=== PATIENT | female | born 1935 | race Caucasian/White ===

== ENCOUNTER 2018-05-14 16:41 | Inpatient (IN) | payer MEDICARE, BC ==
[~2018-05-14] VITALS: Ht 157.5 cm; Wt 75.0 kg
[2018-05-14] MEDS ORDERED: ipratropium/albuterol 3ml nebule ONE (16:53)
[2018-05-14 16:55] LABS: ABG BASE EXCESS 3.4 mmol/L (-2.0-3.0); ABG HCO3 27.6 mmol/L (22.0-26.0); ABG OXYGEN SATURATION 95.6 % (95-98); ABG PCO2 (T) 40.4 mmHg (32.0-45.0); ABG PH (T) 7.452 (7.350-7.450); ALLEN'S TEST Positive; FCOHb 0.6 % (0.5-1.5); TOTAL HEMOGLOBIN 11.3 G/dl (12.0-16.0)
[2018-05-14] MEDS ORDERED: ipratropium/albuterol 3ml nebule NEB ONE (16:55)
[2018-05-14 17:07] LABS: BASOPHILS # (AUTO) 0.1 X10'3 (0-0.2); BASOPHILS % (AUTO) 0.7 % (0-1); EOSINOPHILS # (AUTO) 0.3 X10'3 (0-0.9); EOSINOPHILS % (AUTO) 3.8 % (0-6); HEMATOCRIT 32.7 % (35.0-45.0); HEMOGLOBIN 10.4 g/dl (12.0-16.0); LYMPHOCYTES # (AUTO) 1.1 X10'3 (1.1-4.8); LYMPHOCYTES % (AUTO) 14.5 % (21-51); MEAN CORPUSCULAR HEMOGLOBIN 27.9 PG (27.0-31.0); MEAN CORPUSCULAR HGB CONC 31.7 % (33.0-36.5); MEAN CORPUSCULAR VOLUME 88.1 FL (78-98); MEAN PLATELET VOLUME 7.9 FL (7.4-10.4); MONOCYTES # (AUTO) 0.6 X10'3 (0-0.9); MONOCYTES % (AUTO) 8.4 % (2-12); NEUTROPHILS # (AUTO) 5.4 X10'3 (1.8-7.7); NEUTROPHILS % (AUTO) 72.6 % (42-75); PLATELET COUNT 272 X10'3 (140-440); RED BLOOD COUNT 3.71 X10'6 (4.20-5.60); RED CELL DISTRIBUTION WIDTH 16.9 % (11.5-14.5); WHITE BLOOD COUNT 7.5 X10'3 (4.5-11.0)
[2018-05-14] MEDS ORDERED: HYDROcodone/acetaminophen 5mg/325mg tablet PO PRN (17:15)
[2018-05-14] MEDS ORDERED: morphine 4 MG/ML inj SYRINge IV PRN ×2 (17:15)
[2018-05-14] MEDS ORDERED: mag hydrox/Alum hydrox/simeth 30ml oral suspension PO PRN (17:15)
[2018-05-14] MEDS ORDERED: magnesium hydroxide 30ml (MOM) UD suspension PO PRN (17:15)
[2018-05-14] MEDS ORDERED: ondansetron/PF 4mg/2ml inj IV PRN (17:15)
[2018-05-14] MEDS ORDERED: acetaminophen 325mg tablet PO PRN (17:15)
[2018-05-14 17:18] LABS: ALANINE AMINOTRANSFERASE 16 U/L (12-78); ALBUMIN 3.5 G/DL (3.4-5.0); ALBUMIN/GLOBULIN RATIO 0.8 (1.1-1.5); ALKALINE PHOSPHATASE 105 IU/L (46-116); ANION GAP 7 (8-16); ASPARTATE AMINO TRANSFERASE 23 U/L (10-37); BILIRUBIN,TOTAL 0.7 MG/DL (0.1-1.0); BLOOD UREA NITROGEN 41 MG/DL (7-18); BUN/CREATININE RATIO 25.6 (6.6-38.0); CALCIUM 9.5 MG/DL (8.5-10.1); CHLORIDE 103 MMOL/L (99-107); GLUCOSE 112 MG/DL (70-104); SODIUM 141 MMOL/L (135-145); TOTAL CARBON DIOXIDE 31.2 MMOL/L (24-32); TOTAL PROTEIN 7.7 G/DL (6.4-8.2); eGFR 31 ML/MIN
[2018-05-14 17:20] LABS: INR 2.1 INR; PROTHROMBIN TIME 20.6 SECONDS (9.0-12.0)
--- NOTE | 2018-05-14 19:16 | NUR ---
Rec'd report from MARIA DEL CARMEN Nicholson in the ER.
--- NOTE | 2018-05-14 19:21 | NUR ---
report called, pt undergoing ultrasound at this time, will be transported to floor immediately afterwards
[2018-05-14] MEDS: enoxaparin 40mg/0.4ml syringe SUBCUT SCH (20:00)
[2018-05-14] MEDS: enoxaparin 30mg/0.3ml syringe SUBCUT SCH (20:00)
--- NOTE | 2018-05-14 20:06 | NUR ---
Patient arrived from ER on a gurney and was able to ambulate to her bed with standby assist. She is A&O x4, CALERO and is appropriate. I will continue to monitor.
[2018-05-14 20:10] VITALS: BP 146/57
[2018-05-14] MEDS ORDERED: FURO-149 PO (20:47)
[2018-05-14] MEDS ORDERED: METO1TAB25 PO (20:47)
[2018-05-14] MEDS ORDERED: WARF5TAB PO (20:47)
[2018-05-14] MEDS ORDERED: LEVO25TA2 PO (20:47)
[2018-05-14] MEDS ORDERED: SPIR25TA5 PO (20:47)
[2018-05-14] MEDS ORDERED: DIGO125T PO (20:47)
[2018-05-14] MEDS ORDERED: INSU100V9 SQ (20:47)
[2018-05-14] MEDS ORDERED: ALLO100T PO (20:47)
[2018-05-14] MEDS ORDERED: INSU100C4 SQ (20:47)
[2018-05-14] MEDS: furosemide 10 MG/1 ML 10ml inj IV SCH (21:01)
[2018-05-14] MEDS: metoprolol tartrate 50mg tablet PO SCH (21:02)
[2018-05-14] MEDS ORDERED: dextrose ORAL solution 15 GM/59 ML bottle PO PRN ×2 (21:10)
[2018-05-14] MEDS ORDERED: insulin Lispro (HumaLOG) vial - multi-dose SQ SCH (21:10)
[2018-05-14] MEDS ORDERED: MESSAGE TO PHARMACY PO ONE (21:10)
[2018-05-14] MEDS ORDERED: glucagon, human recombinant 1mg kit SUBCUT PRN (21:10)
[2018-05-14] MEDS ORDERED: dextrose 50%-water 50ml dispensing syringe IV PRN ×2 (21:10)
[2018-05-14 22:00] VITALS: BP 121/66
[2018-05-14 22:23] LABS: HEMOGLOBIN A1C 7.5 % (4.5-6.2)
[2018-05-15] VITALS (7 sets, daily range): BP systolic 93–129; BP diastolic 38–87
[2018-05-15] MEDS ORDERED: albuterol 2.5 MG/3 ML nebule NEB PRN (03:45)
[2018-05-15 05:55] LABS: BASOPHILS % (AUTO) 0.4 % (0-1); EOSINOPHILS # (AUTO) 0.3 X10'3 (0-0.9); EOSINOPHILS % (AUTO) 4.6 % (0-6); HEMATOCRIT 29.5 % (35.0-45.0); HEMOGLOBIN 9.6 g/dl (12.0-16.0); LYMPHOCYTES # (AUTO) 0.9 X10'3 (1.1-4.8); LYMPHOCYTES % (AUTO) 12.9 % (21-51); MEAN CORPUSCULAR HEMOGLOBIN 28.3 PG (27.0-31.0); MEAN CORPUSCULAR HGB CONC 32.5 % (33.0-36.5); MEAN CORPUSCULAR VOLUME 87.3 FL (78-98); MEAN PLATELET VOLUME 8.1 FL (7.4-10.4); MONOCYTES # (AUTO) 0.8 X10'3 (0-0.9); MONOCYTES % (AUTO) 10.7 % (2-12); NEUTROPHILS # (AUTO) 5.3 X10'3 (1.8-7.7); NEUTROPHILS % (AUTO) 71.4 % (42-75); PLATELET COUNT 264 X10'3 (140-440); RED BLOOD COUNT 3.38 X10'6 (4.20-5.60); RED CELL DISTRIBUTION WIDTH 17.2 % (11.5-14.5); WHITE BLOOD COUNT 7.3 X10'3 (4.5-11.0)
[2018-05-15 06:01] LABS: ALBUMIN 3.1 G/DL (3.4-5.0); ANION GAP 8 (8-16); BLOOD UREA NITROGEN 43 MG/DL (7-18); BUN/CREATININE RATIO 24.6 (6.6-38.0); CALCIUM 9.2 MG/DL (8.5-10.1); CHLORIDE 103 MMOL/L (99-107); CHOL/HDL RATIO 6.3 (0.00-4.99); CHOLESTEROL 183 MG/DL (0-200); CREATININE 1.75 MG/DL (0.40-0.90); GLUCOSE 151 MG/DL (70-104); HDL CHOLESTEROL 29 MG/DL (35-60); LDL CHOLESTEROL 134 MG/DL (50-100); POTASSIUM 3.9 MMOL/L (3.5-5.1); SODIUM 142 MMOL/L (135-145); TOTAL CARBON DIOXIDE 31.5 MMOL/L (24-32); TRIGLYCERIDES 135 MG/DL (20-135); eGFR 28 ML/MIN
--- NOTE | 2018-05-15 06:09 | NUR ---
Problems reprioritized. Patient report given, questions answered & plan of care reviewed with MARIA DEL CARMEN Laguna.
--- NOTE | 2018-05-15 06:16 | NUR ---
Patient in room PCU 3013. I have received report from MARIA DEL CARMEN HARP and had the opportunity to ask questions and assume patient care.
[2018-05-15] MEDS: nitroGLYCERIN 0.4mg/hour patch TD SCH (08:00)
[2018-05-15] MEDS: enoxaparin 30mg/0.3ml syringe SUBCUT SCH (08:00)
[2018-05-15] MEDS: enoxaparin 40mg/0.4ml syringe SUBCUT SCH (08:00)
[2018-05-15] MEDS: metoprolol tartrate 50mg tablet PO SCH ×2 (08:51→19:55)
[2018-05-15] MEDS: aspirin 81mg tablet.DR PO SCH (08:51)
[2018-05-15] MEDS: lisinopril 5mg tablet PO SCH (08:51)
[2018-05-15] MEDS: furosemide 10 MG/1 ML 10ml inj IV SCH ×2 (08:53→19:53)
--- NOTE | 2018-05-15 14:06 | NUR ---
Dr López paged regarding med rec needing addressed. Patient not receiving home dose of Coumadin.
[2018-05-15] MEDS: levoFLOXACIN-Levaquin 250mg/D5 50 ML IV SCH (14:16)
--- NOTE | 2018-05-15 14:24 | NUR ---
agustin catheter dc'd per Dr. López. 10ml deflated from balloon. no complications noted. pt advised to let nursing staff know when she needs to void.
--- NOTE | 2018-05-15 14:38 | NUR ---
Malnutrition/DM consults: A1C 7.5. Pt admit w/ acute pulmonary edema; seen by RD for written/verbal DM ed w/ RD contact information provided. Pt PO 75% lunch during RD visit, no severe weakness, and BLE +2 pitting edema only malnutrition indicator. Appears well-nourished. At this time does not qualify for malnutrition. Addendum: 05/15/18 at [address] Amended: Links added.
--- NOTE | 2018-05-15 18:20 | NUR ---
Problems reprioritized. Patient report given, questions answered & plan of care reviewed with priti chapa sbar and bedside.
--- NOTE | 2018-05-15 18:27 | NUR ---
Patient in room PCU 3013. I have received report from MARYCRUZ JOYCE and had the opportunity to ask questions and assume patient care. PATIENT AWAKE IN NO DISTRESS; PATIENT FINISHED EATING DINNER AND EXPLAINS THERE IS NO NEED TO VOID AT THIS TIME. WILL CONT TO MONITOR
[2018-05-15] MEDS: guaiFENesin ER 600mg tablet PO SCH (19:54)
[2018-05-15] MEDS ORDERED: HYDROchlorothiazide 25mg tablet PO SCH (20:00)
[2018-05-15] MEDS ORDERED: insulin glargine (Lantus) pen - multi-dose SQ SCH (21:00)
[2018-05-15] MEDS ORDERED: non-formulary drug (Insulin Glargine,Hum.rec.anlog (Lantus) 20 UNIT) SQ SCH (21:00)
[2018-05-15] MEDS ORDERED: warfarin 5mg tablet PO SCH (21:00)
--- NOTE | 2018-05-15 21:00 | NUR ---
AFTER GIVING LASIX AND LOPRESSOR NURSE REASSESSED BP 1 HOUR LATER AND PATIENT'S SBP 89; WITHHELD HTCZ AT THIS TIME
--- NOTE | 2018-05-15 22:19 | NUR ---
PAGER ID: [phone] MESSAGE: U [id number]; ALANNAH MIKE NEEDS SOMETHING FOR A PERSISTENT COUGH CAN WE GET A PRN? THANKS ROMAIN Addendum: 05/15/18 at 2225 by Asmita Kwan RN ORDERED ROBITUSSIN PRN COUGH PATIENT HAS ALSO NOT VOIDED FOR 8 HOURS SINCE MARTINEZ REMOVAL; BLADDER SCANNER SHOWING 6ML ONLY AFTER PATIENT WAS GIVEN LASIX. PATIENT REPORTS HAVING 4-5 VOIDS A DAY AT HOME. DR FAIRCHILD ORDERED STRAIGHT CATH
[2018-05-15] MEDS ORDERED: guaiFENesin/DM 10ml UD oral syrup PO PRN (22:25)
[2018-05-16 00:51] VITALS: BP 113/47
[2018-05-16 02:50] VITALS: BP 107/54
[2018-05-16 05:23] LABS: BASOPHILS % (AUTO) 0.4 % (0-1); EOSINOPHILS # (AUTO) 0.3 X10'3 (0-0.9); EOSINOPHILS % (AUTO) 4.4 % (0-6); HEMATOCRIT 30.3 % (35.0-45.0); HEMOGLOBIN 9.7 g/dl (12.0-16.0); LYMPHOCYTES # (AUTO) 1.2 X10'3 (1.1-4.8); LYMPHOCYTES % (AUTO) 15.9 % (21-51); MEAN CORPUSCULAR HEMOGLOBIN 28.2 PG (27.0-31.0); MEAN CORPUSCULAR VOLUME 88.2 FL (78-98); MEAN PLATELET VOLUME 7.9 FL (7.4-10.4); MONOCYTES # (AUTO) 0.8 X10'3 (0-0.9); MONOCYTES % (AUTO) 10.7 % (2-12); NEUTROPHILS # (AUTO) 5.2 X10'3 (1.8-7.7); NEUTROPHILS % (AUTO) 68.6 % (42-75); PLATELET COUNT 258 X10'3 (140-440); RED BLOOD COUNT 3.44 X10'6 (4.20-5.60); RED CELL DISTRIBUTION WIDTH 16.8 % (11.5-14.5); WHITE BLOOD COUNT 7.5 X10'3 (4.5-11.0)
[2018-05-16 05:31] LABS: ALBUMIN 2.9 G/DL (3.4-5.0); ANION GAP 7 (8-16); BLOOD UREA NITROGEN 59 MG/DL (7-18); BUN/CREATININE RATIO 28.2 (6.6-38.0); CALCIUM 8.7 MG/DL (8.5-10.1); CHLORIDE 99 MMOL/L (99-107); CREATININE 2.09 MG/DL (0.40-0.90); GLUCOSE 108 MG/DL (70-104); POTASSIUM 4.2 MMOL/L (3.5-5.1); SODIUM 137 MMOL/L (135-145); eGFR 23 ML/MIN
[2018-05-16 05:36] LABS: PROTHROMBIN TIME 19.3 SECONDS (9.0-12.0)
[2018-05-16 06:00] VITALS: BP 88/53
--- NOTE | 2018-05-16 06:26 | NUR ---
Problems reprioritized. Patient report given, questions answered & plan of care reviewed with RUTH JOYCE. PATIENT IN NO DISTRESS. AWAKE, V/S BEING TAKEN
[2018-05-16 06:30] VITALS: BP 107/55
--- NOTE | 2018-05-16 06:30 | NUR ---
Patient in room PCU 3013. I have received report from Suze JOYCE and had the opportunity to ask questions and assume patient care. Pt on RA denies SOB, and without signs of distress. Will continue to monitor.
[2018-05-16] MEDS: levoFLOXACIN-Levaquin 250mg/D5 50 ML IV SCH (07:21)
[2018-05-16] MEDS: guaiFENesin ER 600mg tablet PO SCH (07:22)
[2018-05-16] MEDS: aspirin 81mg tablet.DR PO SCH (07:22)
[2018-05-16] MEDS ORDERED: enoxaparin 30mg/0.3ml syringe SUBCUT SCH (08:00)
[2018-05-16] MEDS ORDERED: allopurinol 100mg tablet PO SCH (08:00)
[2018-05-16] MEDS ORDERED: levoTHYROXINE 25mcg tablet PO SCH (08:00)
[2018-05-16] MEDS: nitroGLYCERIN 0.4mg/hour patch TD SCH (08:00)
[2018-05-16] MEDS: lisinopril 5mg tablet PO SCH (08:00)
[2018-05-16] MEDS ORDERED: digoxin 125mcg (0.125mg) tablet PO SCH (08:00)
[2018-05-16] MEDS ORDERED: benzonatate 100mg capsule PO PRN (09:20)
[2018-05-16 11:00] VITALS: BP 117/51
--- NOTE | 2018-05-16 11:53 | NUR ---
PAGER ID: [phone] MESSAGE: [phone] B Maylin Serrano Physical therapy evaluated and treated patient. Patient ambulated 40feet and oxygen satuation remained stable. Thank you, Yamini #[phone]
[2018-05-16] MEDS ORDERED: BENZ-16 PO (14:15)
[2018-05-16] MEDS ORDERED: METO50TA16 PO (14:15)
[2018-05-16] MEDS ORDERED: LISI-642 PO (14:15)
[2018-05-16] MEDS ORDERED: ROBDML PO (14:15)
--- NOTE | 2018-05-16 15:55 | NUR ---
IV discontinued with canula intact, tele monitor discontinued, educated pt on discharge instructions and reviewed medication schedule with patient. Pt is scheduled for a follow up with primary care provider, Dr. Leach for May 23, 2018 at 1620. New meds were delivered by [facility]. I educated patient on the importance of taking her blood pressure and heart rate before taking her Metoprolol, Lisinopril, Lasix, and Spironolactone. I also educated patient on signs and symptoms of hypotension and bradycardia. Diabetes survival skills given to patient. Patient left in private vehicle driven by her friend with all of her belongings.
[2018-05-16] MEDS ORDERED: metoprolol tartrate 50mg tablet PO SCH (20:00)
[2018-05-16] MEDS ORDERED: lactobacillus rhamnosus 10,000 MMU CELLS/CAPSULE PO SCH (20:00)
[2018-05-17] MEDS ORDERED: furosemide 10 MG/1 ML 10ml inj IV SCH (08:00)
[2018-05-17] MEDS ORDERED: levoFLOXACIN 250mg tablet PO SCH (11:00)
== END 2018-05-16 16:00 | disposition home or self-care (01) | DRG 291 ==
LOC: ER 16:42 → ED HOLD 17:11 → EDBEDREQ 18:46 → PCU 3S 20:00
PROVIDERS: ADMIT Internal Medicine; ATTEND Internal Medicine
DX: I13.0 Hypertensive heart and chronic kidney disease with heart failure and stage 1 through stage 4 chronic kidney disease, or unspecified chronic kidney disease (principal); J96.01 Acute respiratory failure with hypoxia; I50.43 Acute on chronic combined systolic (congestive) and diastolic (congestive) heart failure; R74.8 Abnormal levels of other serum enzymes; I48.0 Paroxysmal atrial fibrillation; N18.3 Chronic kidney disease, stage 3 (moderate); E11.22 Type 2 diabetes mellitus with diabetic chronic kidney disease; D64.9 Anemia, unspecified; G47.30 Sleep apnea, unspecified; Z90.710 Acquired absence of both cervix and uterus; Z95.3 Presence of xenogenic heart valve; Z79.899 Other long term (current) drug therapy; Z79.01 Long term (current) use of anticoagulants; Z88.0 Allergy status to penicillin; Z86.73 Personal history of transient ischemic attack (TIA), and cerebral infarction without residual deficits; Z82.49 Family history of ischemic heart disease and other diseases of the circulatory system; Z83.3 Family history of diabetes mellitus
CPT/HCPCS: 36415; 36600; 71045; 80048; 80053; 80061; 82803; 82948; 83036; 83880; 84484; 85018; 85025; 85610; 87070; 93005; 93306; 94640; 94667; 94760; 97110; 97116; 97162; 99291; G0378; J1650; J1815; J1940; J1956

== ENCOUNTER 2018-08-01 22:24 | Inpatient (IN) | payer MEDICARE, BC | END 2018-08-05 17:45 | disposition short-term general hospital (02) | LOC: ED HOLD 08-02 01:31 → ER 22:24 → PCU 3S 08-02 07:07 | DX: I27.22 Pulmonary hypertension due to left heart disease (principal); I50.33 Acute on chronic diastolic (congestive) heart failure; I13.0 Hypertensive heart and chronic kidney disease with heart failure and stage 1 through stage 4 chronic kidney disease, or unspecified chronic kidney disease; I48.0 Paroxysmal atrial fibrillation; I25.10 Atherosclerotic heart disease of native coronary artery without angina pectoris ==

== ENCOUNTER 2018-09-25 18:03 | Inpatient (IN) | payer MEDICARE, BC ==
[~2018-09-25] VITALS: Ht 157.5 cm; Wt 86.3 kg
[~2018-09-25 18:03] MED LIST: ALLO100T PO; BENZ-16 PO; DIGO125T PO; FURO-149 PO; INSU100C4 SQ; INSU100V9 SQ; LEVO25TA2 PO; LISI-642 PO; METO50TA16 PO; ROBDML PO; SPIR25TA5 PO; WARF5TAB PO
[2018-09-25] MEDS ORDERED: POTA10TA19 PO (18:33)
[2018-09-25] MEDS ORDERED: EPOE10004 SQ (18:33)
[2018-09-25] MEDS ORDERED: APIX2.5T PO (18:33)
[2018-09-25] MEDS ORDERED: DOCU-28 PO (18:33)
[2018-09-25] MEDS ORDERED: ERGO500014 PO (18:33)
[2018-09-25] MEDS ORDERED: FERR325T28 PO (18:33)
[2018-09-25] MEDS ORDERED: ASPI81TA52 PO (18:33)
[2018-09-25] MEDS ORDERED: MULT-933 PO (18:33)
[2018-09-25] MEDS ORDERED: METO50TA17 PEG (18:34)
[2018-09-25 19:01] LABS: HEMOGLOBIN 9.5 g/dl (12.0-16.0); MEAN CORPUSCULAR HEMOGLOBIN 29.1 PG (27.0-31.0); MEAN CORPUSCULAR HGB CONC 30.7 g/dL (33.0-36.5); RED BLOOD COUNT 3.27 X10'6 (4.20-5.60)
[2018-09-25 19:03] LABS: MEAN CORPUSCULAR VOLUME 94.7 FL (78-98); PLATELET COUNT 181 X10'3 (140-440); RED CELL DISTRIBUTION WIDTH 29.3 % (11.5-14.5); WHITE BLOOD COUNT 4.4 X10'3 (4.5-11.0)
[2018-09-25 19:14] LABS: ALANINE AMINOTRANSFERASE 19 U/L (12-78); ALBUMIN 3.3 G/DL (3.4-5.0); ALKALINE PHOSPHATASE 111 IU/L (46-116); ANION GAP 5 (8-16); ASPARTATE AMINO TRANSFERASE 23 U/L (10-37); BILIRUBIN,TOTAL 0.7 MG/DL (0.1-1.0); BLOOD UREA NITROGEN 84 MG/DL (7-18); BUN/CREATININE RATIO 41.4 (6.6-38.0); CALCIUM 9.5 MG/DL (8.5-10.1); CHLORIDE 108 MMOL/L (99-107); CREATININE 2.03 MG/DL (0.40-0.90); GLUCOSE 97 MG/DL (70-104); SODIUM 139 MMOL/L (135-145); TOTAL CARBON DIOXIDE 26.1 MMOL/L (24-32); TOTAL PROTEIN 6.6 G/DL (6.4-8.2); eGFR 23 ML/MIN
[2018-09-25 19:22] LABS: MAGNESIUM 2.7 MG/DL (1.5-2.4)
[2018-09-25 19:42] LABS: ANISOCYTOSIS 3+; PLATELET ESTIMATE NORMAL; TOTAL CELLS COUNTED 100
[2018-09-25 19:43] LABS: SCHISTOCYTES 1+
[2018-09-25] MEDS ORDERED: ondansetron/PF 4mg/2ml inj IV PRN (22:00)
[2018-09-25] MEDS ORDERED: mag hydrox/Alum hydrox/simeth 30ml oral suspension PO PRN (22:00)
[2018-09-25] MEDS ORDERED: magnesium hydroxide 30ml (MOM) UD suspension PO PRN (22:00)
[2018-09-25] MEDS ORDERED: acetaminophen 325mg tablet PO PRN (22:00)
[2018-09-25] MEDS ORDERED: EPOETIN ALFA 10000 UNIT SQ SCH (22:05)
[2018-09-25] MEDS ORDERED: dextrose 50%-water 50ml dispensing syringe IV PRN ×2 (22:10)
[2018-09-25] MEDS ORDERED: glucagon, human recombinant 1mg kit SUBCUT PRN (22:10)
[2018-09-25] MEDS ORDERED: MESSAGE TO PHARMACY PO ONE (22:10)
[2018-09-25] MEDS ORDERED: dextrose ORAL solution 15 GM/59 ML bottle PO PRN ×2 (22:10)
[2018-09-25] MEDS ORDERED: epoetin 20,000 units/ml inj SQ SCH (23:00)
--- NOTE | 2018-09-25 23:46 | NUR ---
DR EISENBERG UPDATED THAT WHEN I EXPLAINED DNR TO THE PT AND WAS GOING TO PLACE THE BAND ON HER WRIST, SHE STATED THAT SHE WOULD BE OK WITH ANY MEDICATIONS AND OXYGEN OR OXYGEN MASK AND THAT SHE DID NOT WANT ANYTHING INVASIVE. REPORTED NO TO: CHEST COMPRESSIONS, DEFIBRILLATION, AND INTUBTION. CODE STATUS CHANGED TO LIMITED.
--- NOTE | 2018-09-25 23:54 | NUR ---
Patient in room . I have received report from Madelaine JOYCE and had the opportunity to ask questions and assume patient care.
--- NOTE | 2018-09-25 23:56 | NUR ---
DR. EISENBERG JUST TALKED TO PT AND SHE REPORTS TO HIM THAT SHE WISHES TO BE FULL CODE. MD TO CHANGE THE ORDER TO FULL CODE. PT UP TO FLOOR NOW.
[2018-09-26] VITALS (7 sets, daily range): BP systolic 128–171; BP diastolic 48–76
--- NOTE | 2018-09-26 01:59 | NUR ---
pt stated that she had the procript injection at her dr office 09/25, no procript given during shift
--- NOTE | 2018-09-26 06:22 | NUR ---
Problems reprioritized. Patient report given, questions answered & plan of care reviewed with Myrtle JOYCE.
[2018-09-26 06:29] LABS: MEAN PLATELET VOLUME 8.1 FL (7.4-10.4)
[2018-09-26 06:31] LABS: HEMATOCRIT 30.3 % (35.0-45.0); HEMOGLOBIN 9.6 g/dl (12.0-16.0); MEAN CORPUSCULAR HEMOGLOBIN 29.5 PG (27.0-31.0); MEAN CORPUSCULAR HGB CONC 31.6 g/dL (33.0-36.5); MEAN CORPUSCULAR VOLUME 93.4 FL (78-98); PLATELET COUNT 171 X10'3 (140-440); RED BLOOD COUNT 3.25 X10'6 (4.20-5.60); RED CELL DISTRIBUTION WIDTH 29.2 % (11.5-14.5); WHITE BLOOD COUNT 4.6 X10'3 (4.5-11.0)
[2018-09-26 07:01] LABS: ALANINE AMINOTRANSFERASE 20 U/L (12-78); ALBUMIN 3.1 G/DL (3.4-5.0); ALKALINE PHOSPHATASE 101 IU/L (46-116); ANION GAP 8 (8-16); ASPARTATE AMINO TRANSFERASE 22 U/L (10-37); BILIRUBIN,TOTAL 0.6 MG/DL (0.1-1.0); BLOOD UREA NITROGEN 84 MG/DL (7-18); BUN/CREATININE RATIO 40.8 (6.6-38.0); CALCIUM 9.3 MG/DL (8.5-10.1); CHLORIDE 108 MMOL/L (99-107); CREATININE 2.06 MG/DL (0.40-0.90); GLUCOSE 118 MG/DL (70-104); SODIUM 141 MMOL/L (135-145); TOTAL CARBON DIOXIDE 25.1 MMOL/L (24-32); TOTAL PROTEIN 6.3 G/DL (6.4-8.2); eGFR 23 ML/MIN
--- NOTE | 2018-09-26 07:03 | NUR ---
Patient in room PCU 3027. I have received report from Hina JOYCE and had the opportunity to ask questions and assume patient care.
[2018-09-26 07:14] LABS: ANISOCYTOSIS 3+; PLATELET ESTIMATE NORMAL; TOTAL CELLS COUNTED 100
[2018-09-26 07:15] LABS: HYPOCHROMASIA 1+; POLYCHROMASIA FEW; SCHISTOCYTES FEW
[2018-09-26] MEDS ORDERED: POTASSIUM CHLORIDE PO SCH (08:00)
[2018-09-26] MEDS: furosemide 10 MG/1 ML 10ml inj IV SCH ×2 (08:07→20:33)
[2018-09-26] MEDS: aspirin 81mg tablet.DR PO SCH (08:09)
[2018-09-26] MEDS: docusate sod 100mg capsule PO SCH (08:09)
[2018-09-26] MEDS: ferrous sulfate 325mg tablet PO SCH (08:10)
[2018-09-26] MEDS: allopurinol 100mg tablet PO SCH (08:10)
[2018-09-26] MEDS: levoTHYROXINE 25mcg tablet PO SCH (08:10)
[2018-09-26] MEDS: apixaban 2.5mg tablet PO SCH ×2 (08:10→20:33)
[2018-09-26] MEDS: digoxin 125mcg (0.125mg) tablet PO SCH (08:10)
[2018-09-26] MEDS: metoprolol tartrate 50mg tablet PO SCH ×3 (08:10→20:34)
[2018-09-26] MEDS: potassium chloride 10mEq ER tablet PO SCH (08:10)
--- NOTE | 2018-09-26 18:47 | NUR ---
Patient in room PCU 3027. I have received report from Myrtle JOYCE and had the opportunity to ask questions and assume patient care.
[2018-09-26] MEDS: insulin glargine (Lantus) pen - multi-dose SQ SCH (21:00)
[2018-09-27 03:00] VITALS: BP 141/51
[2018-09-27 04:28] LABS: HEMOGLOBIN 9.8 g/dl (12.0-16.0); MEAN CORPUSCULAR HGB CONC 30.8 g/dL (33.0-36.5)
[2018-09-27 04:30] LABS: HEMATOCRIT 31.9 % (35.0-45.0); MEAN CORPUSCULAR HEMOGLOBIN 29.1 PG (27.0-31.0); MEAN CORPUSCULAR VOLUME 94.5 FL (78-98); MEAN PLATELET VOLUME 8.5 FL (7.4-10.4); PLATELET COUNT 166 X10'3 (140-440); RED BLOOD COUNT 3.37 X10'6 (4.20-5.60); RED CELL DISTRIBUTION WIDTH 28.7 % (11.5-14.5); WHITE BLOOD COUNT 4.9 X10'3 (4.5-11.0)
[2018-09-27 04:44] LABS: ALANINE AMINOTRANSFERASE 18 U/L (12-78); ALBUMIN 3.1 G/DL (3.4-5.0); ALBUMIN/GLOBULIN RATIO 0.9 (1.1-1.5); ALKALINE PHOSPHATASE 99 IU/L (46-116); ANION GAP 8 (8-16); ASPARTATE AMINO TRANSFERASE 23 U/L (10-37); BILIRUBIN,TOTAL 0.6 MG/DL (0.1-1.0); BLOOD UREA NITROGEN 87 MG/DL (7-18); BUN/CREATININE RATIO 41.4 (6.6-38.0); CALCIUM 9.2 MG/DL (8.5-10.1); CHLORIDE 107 MMOL/L (99-107); GLUCOSE 132 MG/DL (70-104); POTASSIUM 5.4 MMOL/L (3.5-5.1); SODIUM 140 MMOL/L (135-145); TOTAL CARBON DIOXIDE 25.4 MMOL/L (24-32); TOTAL PROTEIN 6.6 G/DL (6.4-8.2); eGFR 22 ML/MIN
[2018-09-27 06:00] VITALS: BP 148/44
[2018-09-27 06:00] LABS: ANISOCYTOSIS 3+; HYPOCHROMASIA 2+; PLATELET ESTIMATE NORMAL; TOTAL CELLS COUNTED 100
[2018-09-27 06:01] LABS: POIKILOCYTOSIS FEW; POLYCHROMASIA FEW
[2018-09-27 06:02] LABS: SPHEROCYTES FEW
--- NOTE | 2018-09-27 06:18 | NUR ---
Patient in room PCU 3027. I have received report from Hina JOYCE and had the opportunity to ask questions and assume patient care. Will continue to monitor patient.
--- NOTE | 2018-09-27 06:30 | NUR ---
Problems reprioritized. Patient report given, questions answered & plan of care reviewed with Zach JOYCE.
[2018-09-27] MEDS: docusate sod 100mg capsule PO SCH (07:41)
[2018-09-27] MEDS: ferrous sulfate 325mg tablet PO SCH (07:41)
[2018-09-27] MEDS: aspirin 81mg tablet.DR PO SCH (07:41)
[2018-09-27] MEDS: furosemide 10 MG/1 ML 10ml inj IV SCH ×2 (07:41→20:39)
[2018-09-27] MEDS: potassium chloride 10mEq ER tablet PO SCH (07:41)
[2018-09-27] MEDS: metoprolol tartrate 50mg tablet PO SCH ×3 (07:42→20:39)
[2018-09-27] MEDS: apixaban 2.5mg tablet PO SCH ×2 (07:43→20:39)
[2018-09-27] MEDS: levoTHYROXINE 25mcg tablet PO SCH (07:43)
[2018-09-27] MEDS: digoxin 125mcg (0.125mg) tablet PO SCH (07:44)
[2018-09-27] MEDS: allopurinol 100mg tablet PO SCH (07:55)
--- NOTE | 2018-09-27 11:47 | NUR ---
sent page to Dr. steward - Room 6781 Jason - Maylin Serrano. Had episode of bradycardia in the 30's with 5 second pause, mixed with 3-4 second pauses over one minute. HR returned to mid- 80's, BP 128/60. Thanks, Vilma x [phone]. Patient remained asymptomatic.
[2018-09-27 11:59] VITALS: BP 116/40
--- NOTE | 2018-09-27 14:23 | NUR ---
Patient aroused - Is very lethargic but can be aroused. Answers questions appropriately. States she is "very tired".
--- NOTE | 2018-09-27 15:58 | NUR ---
Message paged to provider - MESSAGE: Room 1903f, León Serrano. dig level is critical at 2.8. Patient is more lethargic and congested today and having difficulty clearing secretions. Consider RT treatments? Vilma x [phone]. Patient has friends in room - still sleepy, but trying to visit with them.
[2018-09-27 16:00] VITALS: BP 131/18
[2018-09-27 18:00] VITALS: BP 112/47
--- NOTE | 2018-09-27 18:11 | NUR ---
Problems reprioritized. Patient report given, questions answered & plan of care reviewed with Hina JOYCE. Patient stable at transfer of care.
--- NOTE | 2018-09-27 18:13 | NUR ---
[place] Medication Administration: For this medication-pass time frame, all medication were reviewed, dispensed, administered and documented per hospital policy by Vilma JOYCE. Orientee documentation: I have reviewed and agree with all interventions, assessments performed and documented by Vilma JOYCE.
--- NOTE | 2018-09-27 18:39 | NUR ---
Patient in room PCU 3027. I have received report from Aminata JOYCE and had the opportunity to ask questions and assume patient care.
[2018-09-27] MEDS: insulin glargine (Lantus) pen - multi-dose SQ SCH (21:00)
[2018-09-27 23:00] VITALS: BP 110/52
[2018-09-28] VITALS (13 sets, daily range): BP systolic 91–123; BP diastolic 40–58
--- NOTE | 2018-09-28 01:55 | NUR ---
pt is very SOB, O2 was 81%, increased from2.5 to 4L and O2 is at 91%. Notified Dr. No and received an order of ABG and bipap
[2018-09-28 02:36] LABS: ABG BASE EXCESS -3.9 mmol/L (-2.0-3.0); ABG HCO3 24.7 mmol/L (22.0-26.0); ABG OXYGEN SATURATION 87.8 % (95-98); ABG PCO2 (T) 63.1 mmHg (32.0-45.0); ABG PH (T) 7.209 (7.350-7.450); ABG PO2 (T) 61.2 mmHg (83-108); FCOHb 0.6 % (0.5-1.5); FLOW 5 L/min; FMetHb 0.1 % (0.3-1.12); FO2Hb 87.2 % (94-100); PATIENT TEMPERATURE 36.9; TOTAL HEMOGLOBIN 11.1 G/dl (12.0-16.0)
[2018-09-28 05:55] LABS: BASOPHILS # (AUTO) 0.1 X10'3 (0-0.2); BASOPHILS % (AUTO) 1.7 % (0-1); EOSINOPHILS # (AUTO) 0.1 X10'3 (0-0.9); EOSINOPHILS % (AUTO) 1.1 % (0-6); HEMATOCRIT 31.3 % (35.0-45.0); HEMOGLOBIN 9.5 g/dl (12.0-16.0); LYMPHOCYTES # (AUTO) 0.5 X10'3 (1.1-4.8); LYMPHOCYTES % (AUTO) 10.3 % (21-51); MEAN CORPUSCULAR HEMOGLOBIN 29.2 PG (27.0-31.0); MEAN CORPUSCULAR HGB CONC 30.3 g/dL (33.0-36.5); MEAN CORPUSCULAR VOLUME 96.2 FL (78-98); MEAN PLATELET VOLUME 8.8 FL (7.4-10.4); MONOCYTES # (AUTO) 0.8 X10'3 (0-0.9); MONOCYTES % (AUTO) 16.6 % (2-12); NEUTROPHILS # (AUTO) 3.4 X10'3 (1.8-7.7); NEUTROPHILS % (AUTO) 70.3 % (42-75); PLATELET COUNT 163 X10'3 (140-440); RED BLOOD COUNT 3.25 X10'6 (4.20-5.60); RED CELL DISTRIBUTION WIDTH 27.9 % (11.5-14.5); WHITE BLOOD COUNT 4.9 X10'3 (4.5-11.0)
[2018-09-28 06:15] LABS: ALANINE AMINOTRANSFERASE 19 U/L (12-78); ALBUMIN 3.1 G/DL (3.4-5.0); ALBUMIN/GLOBULIN RATIO 0.9 (1.1-1.5); ALKALINE PHOSPHATASE 91 IU/L (46-116); ANION GAP 7 (8-16); ASPARTATE AMINO TRANSFERASE 23 U/L (10-37); BILIRUBIN,TOTAL 0.6 MG/DL (0.1-1.0); BLOOD UREA NITROGEN 96 MG/DL (7-18); BUN/CREATININE RATIO 35.4 (6.6-38.0); CALCIUM 8.9 MG/DL (8.5-10.1); CHLORIDE 106 MMOL/L (99-107); CREATININE 2.71 MG/DL (0.40-0.90); GLUCOSE 144 MG/DL (70-104); POTASSIUM 5.7 MMOL/L (3.5-5.1); SODIUM 139 MMOL/L (135-145); TOTAL CARBON DIOXIDE 25.7 MMOL/L (24-32); TOTAL PROTEIN 6.4 G/DL (6.4-8.2); eGFR 17 ML/MIN
--- NOTE | 2018-09-28 06:34 | NUR ---
notified Dr. No digoxin 2.2, got an order to continue to hold digoxin
--- NOTE | 2018-09-28 06:39 | NUR ---
Problems reprioritized. Patient report given, questions answered & plan of care reviewed with Edith JOYCE.
--- NOTE | 2018-09-28 06:44 | NUR ---
Patient in room PCU 5707Z. I have received report from Mary JOYCE and had the opportunity to ask questions and assume patient care. Patient laying in bed, bipap in place. Patient denies complaints at this time. Bed is low and locked with call light in place, will continue to monitor at this time.
[2018-09-28 06:47] LABS: ANISOCYTOSIS 3+; HYPOCHROMASIA 1+; PLATELET ESTIMATE NORMAL; POLYCHROMASIA 1+
[2018-09-28 06:48] LABS: POIKILOCYTOSIS 1+
[2018-09-28] MEDS: potassium chloride 10mEq ER tablet PO SCH (07:09)
--- NOTE | 2018-09-28 07:09 | NUR ---
PAGER ID: [phone] MESSAGE: Edith JOYCE Ext [phone] Jayson K+5.7 will hold 10mEq scheduled K+, BUN/Cr increasing, continue to give IV Lasix? Thank you
[2018-09-28] MEDS: levoTHYROXINE 25mcg tablet PO SCH (09:00)
[2018-09-28] MEDS: apixaban 2.5mg tablet PO SCH ×2 (09:01→21:31)
[2018-09-28] MEDS: metoprolol tartrate 50mg tablet PO SCH ×3 (09:03→21:31)
[2018-09-28] MEDS: allopurinol 100mg tablet PO SCH (09:03)
[2018-09-28] MEDS: docusate sod 100mg capsule PO SCH (09:04)
[2018-09-28] MEDS: aspirin 81mg tablet.DR PO SCH (09:05)
[2018-09-28] MEDS: ferrous sulfate 325mg tablet PO SCH (09:05)
[2018-09-28] MEDS ORDERED: DOBUTamine-DoBUTrex 500mg/D5W 250 ML IV SCH (12:00)
--- NOTE | 2018-09-28 18:10 | NUR ---
Any charting and medication administrations completed by Eva JOYCE has been reviewed. Constructive criticism given as needed.
--- NOTE | 2018-09-28 18:36 | NUR ---
Problems reprioritized. Patient report given, questions answered & plan of care reviewed with Rima RN at the bedside.
--- NOTE | 2018-09-28 18:39 | NUR ---
Patient in room PCU 3027. I have received report from Edith JOYCE and had the opportunity to ask questions and assume patient care.
[2018-09-28] MEDS: furosemide 20 MG/2 ML vial IV SCH (21:30)
[2018-09-28] MEDS: insulin glargine (Lantus) pen - multi-dose SQ SCH (22:29)
[2018-09-29] VITALS (16 sets, daily range): BP systolic 100–130; BP diastolic 41–67
[2018-09-29 05:29] LABS: MEAN PLATELET VOLUME 8.7 FL (7.4-10.4)
[2018-09-29 05:31] LABS: HEMATOCRIT 29.5 % (35.0-45.0); HEMOGLOBIN 9.3 g/dl (12.0-16.0); MEAN CORPUSCULAR HEMOGLOBIN 29.4 PG (27.0-31.0); MEAN CORPUSCULAR HGB CONC 31.5 g/dL (33.0-36.5); MEAN CORPUSCULAR VOLUME 93.5 FL (78-98); PLATELET COUNT 141 X10'3 (140-440); RED BLOOD COUNT 3.15 X10'6 (4.20-5.60); WHITE BLOOD COUNT 5.8 X10'3 (4.5-11.0)
[2018-09-29 06:09] LABS: ALANINE AMINOTRANSFERASE 21 U/L (12-78); ALBUMIN 2.9 G/DL (3.4-5.0); ALBUMIN/GLOBULIN RATIO 0.9 (1.1-1.5); ALKALINE PHOSPHATASE 87 IU/L (46-116); ANION GAP 6 (8-16); ASPARTATE AMINO TRANSFERASE 24 U/L (10-37); BILIRUBIN,TOTAL 0.5 MG/DL (0.1-1.0); BLOOD UREA NITROGEN 111 MG/DL (7-18); BUN/CREATININE RATIO 31.9 (6.6-38.0); CALCIUM 8.7 MG/DL (8.5-10.1); CHLORIDE 105 MMOL/L (99-107); CREATININE 3.48 MG/DL (0.40-0.90); GLUCOSE 146 MG/DL (70-104); SODIUM 137 MMOL/L (135-145); TOTAL CARBON DIOXIDE 25.7 MMOL/L (24-32); eGFR 13 ML/MIN
[2018-09-29 06:18] LABS: POTASSIUM 6.2 MMOL/L (3.5-5.1)
--- NOTE | 2018-09-29 06:57 | NUR ---
Patient in room PCU 3027. I have received report from Rima JOYCE and had the opportunity to ask questions and assume patient care.
[2018-09-29] MEDS ORDERED: sodium polystyrene sulfonate 15gm/60ml oral suspension PO ONE (07:05)
[2018-09-29 07:18] LABS: ANISOCYTOSIS 3+; PLATELET ESTIMATE NORMAL; TOTAL CELLS COUNTED 100
[2018-09-29 07:19] LABS: HYPOCHROMASIA 1+; LARGE PLATELETS FEW; POIKILOCYTOSIS FEW; POLYCHROMASIA FEW
--- NOTE | 2018-09-29 07:55 | NUR ---
Problems reprioritized. Patient report given, questions answered & plan of care reviewed with Edith JOYCE/Claudine JOYCE.
[2018-09-29] MEDS: potassium chloride 10mEq ER tablet PO SCH (08:00)
[2018-09-29] MEDS: metoprolol tartrate 50mg tablet PO SCH ×3 (08:22→20:46)
[2018-09-29] MEDS: furosemide 20 MG/2 ML vial IV SCH (08:23)
[2018-09-29] MEDS: allopurinol 100mg tablet PO SCH (08:24)
[2018-09-29] MEDS: ferrous sulfate 325mg tablet PO SCH (08:24)
[2018-09-29] MEDS: aspirin 81mg tablet.DR PO SCH (08:24)
[2018-09-29] MEDS: docusate sod 100mg capsule PO SCH (08:24)
[2018-09-29] MEDS: levoTHYROXINE 25mcg tablet PO SCH (08:24)
[2018-09-29] MEDS: apixaban 2.5mg tablet PO SCH ×2 (08:24→20:46)
[2018-09-29] MEDS: digoxin 125mcg (0.125mg) tablet PO SCH (08:26)
[2018-09-29] MEDS ORDERED: dextrose 50%-water 50ml dispensing syringe IV ONE (09:50)
[2018-09-29] MEDS ORDERED: calcium chloride 100 MG/1 ML inj IV ONE (09:50)
[2018-09-29] MEDS ORDERED: insulin regular, human 10 units/0.1 ml syringe IV ONE (09:50)
[2018-09-29] MEDS ORDERED: calcium chloride inj. 1,000 MG in normal saline 100ml IV soln 90 ML IV ONE (10:05)
--- NOTE | 2018-09-29 10:17 | NUR ---
Page to Respiratory: 5149G PT RAHUL has active order for state ABG. Thank you.
[2018-09-29 10:36] LABS: ABG BASE EXCESS -4.4 mmol/L (-2.0-3.0); ABG HCO3 22.9 mmol/L (22.0-26.0); ABG OXYGEN SATURATION 95.5 % (95-98); ABG PCO2 (T) 52.7 mmHg (32.0-45.0); ABG PH (T) 7.255 (7.350-7.450); ABG PO2 (T) 89.2 mmHg (83-108); ALLEN'S TEST Positive; FCOHb 0.5 % (0.5-1.5); FLOW 2 L/min; FMetHb 0.2 % (0.3-1.12); FO2Hb 94.8 % (94-100); TOTAL HEMOGLOBIN 10.3 G/dl (12.0-16.0)
[2018-09-29] MEDS: DOBUTamine-DoBUTrex 500mg/D5W 250 ML IV SCH ×2 (10:59→20:47)
--- NOTE | 2018-09-29 12:45 | NUR ---
Winter Catheter placed with no incident per MD order. No urine output at this time, will collect urinalysis as production occurs.
--- NOTE | 2018-09-29 15:42 | NUR ---
Page to NM: [id number] PT RAHUL active stat order that MD does not want rescheduled. Says may be emergent and needs to be done today.
--- NOTE | 2018-09-29 16:56 | NUR ---
Attempted to call [employer] [facility] med with no answer. Patient went from oliguric to anuric. Ms Josie HAWK aware of decreased urine output, concerned it could be emergent. Nuc. Med previously verbalized that patient could be seen at 0800 on 09/30/2018, new order input as STAT in order to address issue. Will continue to attempt to call [facility]. Catheter flushed as per request from Josie, no output detected at this time.
--- NOTE | 2018-09-29 18:36 | NUR ---
Problems reprioritized. Patient report given, questions answered & plan of care reviewed with Rima JOYCE. Patient stable at transfer of care.
--- NOTE | 2018-09-29 18:42 | NUR ---
Patient in room PCU 3027. I have received report from Edith JOYCE and had the opportunity to ask questions and assume patient care.
--- NOTE | 2018-09-29 21:00 | NUR ---
No urine output in agustin bag. Flushed X 2 f/no results. Bladder palpated, bladder scan completed, showing >900mls fluid in bladder. New agustin catheter inserted f/clear, yellow urine draining cont. w/approx 550mls out immediately. Spec sent to lab.Foam drsg applied to coccyx which is reddened, blanchable, pt turned to L side. Sml open area noted to L groin, barrier crm applied. Protocol ord. to recheck K level entered as Kayexalate PO was admin approx 7HRS before this entry. AM K level: 6.2
[2018-09-29 21:46] LABS: CLARITY,URINE CLEAR (Clear); COLOR,URINE YELLOW (Yellow); GLUCOSE, URINE NEGATIVE (Neg); KETONES,URINE NEGATIVE (Neg); LEUKOCYTE ESTERASE ,URINE NEGATIVE (Neg); NITRITES, URINE NEGATIVE (Neg); OCCULT BLOOD,URINE TRACE-INTACT (Neg); PH,URINE 5.5 (4.8-8.0); PROTEIN,URINE TRACE mg/dl (Neg); UROBILINOGEN,URINE 0.2 E.U/dL (0.2-1.0)
[2018-09-29 21:51] LABS: SODIUM,URINE RANDOM < 15 MEQ/L; TOTAL PROTEIN,URINE RANDOM 46.1 MG/DL
[2018-09-29 21:56] LABS: UA COLLECTION TYPE FOLEY CATH
[2018-09-29 21:57] LABS: AMORPHOUS URATES 1+; BACTERIA,URINE FEW /HPF (Neg); RBC,URINE 0-2 /HPF (0-2); SQUAMOUS EPITHELIAL CELL,UR FEW /LPF (FEW); WBC,URINE NONE SEEN /HPF (0-4)
[2018-09-29 22:07] LABS: ALBUMIN 2.8 G/DL (3.4-5.0); ANION GAP 6 (8-16); BLOOD UREA NITROGEN 115 MG/DL (7-18); BUN/CREATININE RATIO 34.3 (6.6-38.0); CALCIUM 8.9 MG/DL (8.5-10.1); CHLORIDE 106 MMOL/L (99-107); CREATININE 3.35 MG/DL (0.40-0.90); GLUCOSE 130 MG/DL (70-104); SODIUM 136 MMOL/L (135-145); TOTAL CARBON DIOXIDE 24.1 MMOL/L (24-32); eGFR 13 ML/MIN
[2018-09-29 22:21] LABS: OSMOLALITY UA 360 MOSM/K (50-1400)
[2018-09-29] MEDS: insulin glargine (Lantus) pen - multi-dose SQ SCH (23:33)
[2018-09-30] VITALS (23 sets, daily range): BP systolic 88–125; BP diastolic 30–69
[2018-09-30 05:20] LABS: WHITE BLOOD COUNT 4.7 X10'3 (4.5-11.0)
[2018-09-30 05:28] LABS: HEMATOCRIT 27.4 % (35.0-45.0); HEMOGLOBIN 8.9 g/dl (12.0-16.0); MEAN CORPUSCULAR HEMOGLOBIN 30.4 PG (27.0-31.0); MEAN CORPUSCULAR HGB CONC 32.6 g/dL (33.0-36.5); MEAN CORPUSCULAR VOLUME 93.1 FL (78-98); MEAN PLATELET VOLUME 8.8 FL (7.4-10.4); PLATELET COUNT 123 X10'3 (140-440); RED BLOOD COUNT 2.94 X10'6 (4.20-5.60); RED CELL DISTRIBUTION WIDTH 27.6 % (11.5-14.5)
[2018-09-30 05:30] LABS: ALBUMIN 2.7 G/DL (3.4-5.0); ANION GAP 7 (8-16); BILIRUBIN,TOTAL 0.5 MG/DL (0.1-1.0); BLOOD UREA NITROGEN 114 MG/DL (7-18); BUN/CREATININE RATIO 32.9 (6.6-38.0); CHLORIDE 105 MMOL/L (99-107); CREATININE 3.47 MG/DL (0.40-0.90); GLUCOSE 118 MG/DL (70-104); POTASSIUM 4.6 MMOL/L (3.5-5.1); SODIUM 137 MMOL/L (135-145); TOTAL CARBON DIOXIDE 25.2 MMOL/L (24-32); TOTAL PROTEIN 5.7 G/DL (6.4-8.2); eGFR 13 ML/MIN
[2018-09-30 05:31] LABS: ALANINE AMINOTRANSFERASE 20 U/L (12-78); ALBUMIN/GLOBULIN RATIO 0.9 (1.1-1.5); ALKALINE PHOSPHATASE 84 IU/L (46-116); ASPARTATE AMINO TRANSFERASE 22 U/L (10-37)
[2018-09-30 06:20] LABS: ANISOCYTOSIS 3+; HYPOCHROMASIA 1+; PLATELET ESTIMATE DECREASED; POIKILOCYTOSIS FEW; TOTAL CELLS COUNTED 100
--- NOTE | 2018-09-30 06:51 | NUR ---
Patient in room PCU 3027. I have received report from MARIA DEL CARMEN Abarca and had the opportunity to ask questions and assume patient care.
--- NOTE | 2018-09-30 07:13 | NUR ---
Problems reprioritized. Patient report given, questions answered & plan of care reviewed with Luz Elena JOYCE/Claudine JOYCE.
--- NOTE | 2018-09-30 07:40 | NUR ---
Patient in room PCU 3027. I have received report from Rima JOYCE and had the opportunity to ask questions and assume patient care.
--- NOTE | 2018-09-30 07:55 | NUR ---
IN TO SEE AND ASSESS PT. PT ALERT AND ORIENTED X4. PT HAVING LOW BP 88/57 88/41 101/30 PT ASYMPTOMATIC. PT ON DOBUTAMINE @5. DR. HIGHTOWER IN TO SEE PT WITH MYSELF AND IS AWARE OF PTS CONDITION AND BLOOD PRESSURES. DR. HIGHTOWER NOTIFIED PTS DIG LEVEL YESTERDAY WAS 2 AND DIG WAS GIVEN YESTERDAY. PER DR. HIGHTOWER D/C DIG. PER DR HIGHTOWER PT WANTS TO STAY A FULL CODE. NO OTHER MD ORDERS RECEIVED. WILL CONTINUE TO MONITOR PT CLOSELY. Addendum: 09/30/18 at 0819 by Luz Elena Camacho RN STAFF HERE TO TAKE PT OT RENAL U/S. PT TOO UNSTABLE TO TRANSPORT AT THIS TIME. AWARE AND AGREES
[2018-09-30] MEDS: metoprolol tartrate 50mg tablet PO SCH ×3 (08:00→21:51)
[2018-09-30] MEDS: aspirin 81mg tablet.DR PO SCH (09:21)
[2018-09-30] MEDS: docusate sod 100mg capsule PO SCH (09:21)
[2018-09-30] MEDS: apixaban 2.5mg tablet PO SCH ×2 (09:22→21:41)
[2018-09-30] MEDS: ferrous sulfate 325mg tablet PO SCH (09:22)
[2018-09-30] MEDS: allopurinol 100mg tablet PO SCH (09:22)
[2018-09-30] MEDS: levoTHYROXINE 25mcg tablet PO SCH (09:22)
--- NOTE | 2018-09-30 10:15 | NUR ---
VIKTORIYA Hall in to see pt. she wis comfortable with proceeding with renal scan
--- NOTE | 2018-09-30 10:31 | NUR ---
pt taken to renal scan by hussein with 2RN's and tech. pt in stable condition Addendum: 09/30/18 at 1032 by Luz Elena Camacho RN current bp 104/58 hr 78 o2 98% 3L nc while laying flat for test
--- NOTE | 2018-09-30 10:35 | NUR ---
current bp 120/48
--- NOTE | 2018-09-30 11:07 | NUR ---
pt tolerating scan well current bp 114/56 hr 75 o2 98% 3l nc
--- NOTE | 2018-09-30 13:26 | NUR ---
DM Consult: A1C 7.1 in July. Pt admit w/ acute on chronic renal failure and cardiorenal per MD note. Pt/family seen by RD for written/verbal DM ed. Pt declined verbal review but accepted written handout and RD contact information. Pt reports drinking ensures at home w/ 0-25% PO carb controlled/renal/heart healthy meals this admit in addition to severe weakness and no appetite. LBM 09/28. CEDRICK [employer] for ensure enlive TIDWM approval given no PO and needs meal replacement ONS. No physical signs of malnutrition but if PO remains low will qualify at that time. Will continue to monitor. Rec: 1. IF PO remains 0-25%; advance to regular diet per MD approval 2. ensure enlive TIDWM per MD approval 3. monitor for additional malnutrition criteria 4. wt per rx Addendum: 09/30/18 at [address] Amended: Links added.
[2018-09-30] MEDS: insulin Lispro (HumaLOG) vial - multi-dose SQ SCH (13:34)
--- NOTE | 2018-09-30 14:53 | NUR ---
Page to Dr López re: Room 3023W Maylin Serrano morning and 1300 Lopressor held due to persistent hypotension Claudine 2606 awaiting call back
[2018-09-30] MEDS: DOBUTamine-DoBUTrex 500mg/D5W 250 ML IV SCH (17:04)
--- NOTE | 2018-09-30 17:58 | NUR ---
Orientee documentation: I have reviewed and agree with all interventions, assessments performed and documented by MARIA DEL CARMEN Chow.
[2018-09-30] MEDS: lactose-reduced food (Ensure Enlive) - 237ml bottle PO SCH ×2 (18:00→19:00)
--- NOTE | 2018-09-30 18:25 | NUR ---
Patient in room PCU 3027. I have received report from Tonya JOYCE and had the opportunity to ask questions and assume patient care.
--- NOTE | 2018-09-30 18:46 | NUR ---
Problems reprioritized. Patient report given, questions answered & plan of care reviewed with MARIA DEL CARMEN Harrington.
[2018-09-30] MEDS: insulin glargine (Lantus) pen - multi-dose SQ SCH (21:55)
[2018-10-01] VITALS (22 sets, daily range): BP systolic 102–121; BP diastolic 35–96
--- NOTE | 2018-10-01 06:29 | NUR ---
Patient in room U 3027. I have received report from MARIA DEL CARMEN Yu and had the opportunity to ask questions and assume patient care. Patient is currently resting in bed, bed locked and low, call light in reach. No accute distress, no needs at this time. Addendum: 10/01/18 at 0634 by Eva Mayo RN Charted on wrong patient, Received report from MARIA DEL CARMEN Harrington
--- NOTE | 2018-10-01 06:34 | NUR ---
Received report from Juany JOYCE at the bedside. Patient awake in bed, denies complaints, appears to be in no distress. Bed is low and locked, call light within reach. Will continue to monitor at this time.
--- NOTE | 2018-10-01 06:51 | NUR ---
Problems reprioritized. Patient report given, questions answered & plan of care reviewed with Edith JOYCE.
--- NOTE | 2018-10-01 07:25 | NUR ---
PAGER ID: [phone] MESSAGE: MARIA DEL CARMEN Velasquez [phone], [id number], Yasmeen PRICE maxed at 250, insulin@ 2, BG 99, can we drop insulin rate? Addendum: 10/01/18 at 1806 by Eva Mayo RN Charted on wrong patient
[2018-10-01 08:31] LABS: ALBUMIN 2.8 G/DL (3.4-5.0); ANION GAP 8 (8-16); BLOOD UREA NITROGEN 109 MG/DL (7-18); BUN/CREATININE RATIO 31.4 (6.6-38.0); CALCIUM 8.8 MG/DL (8.5-10.1); CHLORIDE 106 MMOL/L (99-107); CREATININE 3.47 MG/DL (0.40-0.90); GLUCOSE 104 MG/DL (70-104); POTASSIUM 4.3 MMOL/L (3.5-5.1); SODIUM 140 MMOL/L (135-145); TOTAL CARBON DIOXIDE 26.4 MMOL/L (24-32); eGFR 13 ML/MIN
[2018-10-01] MEDS: levoTHYROXINE 25mcg tablet PO SCH (08:48)
[2018-10-01] MEDS: metoprolol tartrate 50mg tablet PO SCH ×3 (08:53→21:27)
[2018-10-01] MEDS: docusate sod 100mg capsule PO SCH (08:54)
[2018-10-01] MEDS: aspirin 81mg tablet.DR PO SCH (08:54)
[2018-10-01] MEDS: apixaban 2.5mg tablet PO SCH ×2 (08:54→19:44)
[2018-10-01] MEDS: ferrous sulfate 325mg tablet PO SCH (08:54)
[2018-10-01] MEDS: allopurinol 100mg tablet PO SCH (08:54)
[2018-10-01] MEDS: insulin Lispro (HumaLOG) vial - multi-dose SQ SCH ×3 (09:03→19:49)
[2018-10-01] MEDS: lactose-reduced food (Ensure Enlive) - 237ml bottle PO SCH ×2 (13:25→18:05)
--- NOTE | 2018-10-01 15:58 | NUR ---
Spoke with Dr Gonzáles about blood production in patients agustin catheter, not concerned at this time.
[2018-10-01] MEDS: DOBUTamine-DoBUTrex 500mg/D5W 250 ML IV SCH (16:16)
--- NOTE | 2018-10-01 16:39 | NUR ---
Spoke with Dr López who verbalized request to keep in existing PIVs in order to keep Dobutamine drip running. Dr López also okay'd insertion of extended PIV. PICC nurse paged.
--- NOTE | 2018-10-01 18:15 | NUR ---
Patient in room PCU 3027. I have received report from Edith JOYCE and had the opportunity to ask questions and assume patient care.
--- NOTE | 2018-10-01 18:21 | NUR ---
Problems reprioritized. Patient report given, questions answered & plan of care reviewed with Juany JOYCE at the bedside. Patient stable and denies complaints at transfer of care.
[2018-10-01] MEDS: insulin glargine (Lantus) pen - multi-dose SQ SCH (21:33)
[2018-10-02] VITALS (11 sets, daily range): BP systolic 101–126; BP diastolic 37–65
[2018-10-02] MEDS ORDERED: epoetin 20,000 units/ml inj SQ SCH (02:05)
[2018-10-02 05:24] LABS: BASOPHILS % (AUTO) 0.7 % (0-1); EOSINOPHILS # (AUTO) 0.1 X10'3 (0-0.9); EOSINOPHILS % (AUTO) 1.5 % (0-6); HEMATOCRIT 28.3 % (35.0-45.0); HEMOGLOBIN 8.8 g/dl (12.0-16.0); LYMPHOCYTES # (AUTO) 0.6 X10'3 (1.1-4.8); MEAN CORPUSCULAR HEMOGLOBIN 29.4 PG (27.0-31.0); MEAN CORPUSCULAR VOLUME 94.5 FL (78-98); MEAN PLATELET VOLUME 8.6 FL (7.4-10.4); MONOCYTES # (AUTO) 0.4 X10'3 (0-0.9); MONOCYTES % (AUTO) 8.5 % (2-12); NEUTROPHILS # (AUTO) 3.8 X10'3 (1.8-7.7); NEUTROPHILS % (AUTO) 77.3 % (42-75); PLATELET COUNT 109 X10'3 (140-440); RED CELL DISTRIBUTION WIDTH 27.7 % (11.5-14.5); WHITE BLOOD COUNT 4.9 X10'3 (4.5-11.0)
[2018-10-02 06:17] LABS: ALBUMIN 2.7 G/DL (3.4-5.0); ANION GAP 9 (8-16); BLOOD UREA NITROGEN 112 MG/DL (7-18); BUN/CREATININE RATIO 33.1 (6.6-38.0); CALCIUM 8.6 MG/DL (8.5-10.1); CHLORIDE 105 MMOL/L (99-107); CREATININE 3.38 MG/DL (0.40-0.90); GLUCOSE 84 MG/DL (70-104); POTASSIUM 4.9 MMOL/L (3.5-5.1); SODIUM 140 MMOL/L (135-145); TOTAL CARBON DIOXIDE 25.6 MMOL/L (24-32); eGFR 13 ML/MIN
[2018-10-02 06:57] LABS: ANISOCYTOSIS 3+; PLATELET ESTIMATE DECREASED
[2018-10-02 06:58] LABS: HYPOCHROMASIA 1+; MICROCYTOSIS 1+
--- NOTE | 2018-10-02 07:00 | NUR ---
Problems reprioritized. Patient report given, questions answered & plan of care reviewed with Ana JOYCE.
[2018-10-02] MEDS: apixaban 2.5mg tablet PO SCH ×2 (08:09→19:23)
[2018-10-02] MEDS: aspirin 81mg tablet.DR PO SCH (08:09)
[2018-10-02] MEDS: allopurinol 100mg tablet PO SCH (08:09)
[2018-10-02] MEDS: ferrous sulfate 325mg tablet PO SCH (08:09)
[2018-10-02] MEDS: levoTHYROXINE 25mcg tablet PO SCH (08:09)
[2018-10-02] MEDS: docusate sod 100mg capsule PO SCH (08:09)
[2018-10-02] MEDS: metoprolol tartrate 50mg tablet PO SCH ×3 (08:10→19:23)
[2018-10-02] MEDS: lactose-reduced food (Ensure Enlive) - 237ml bottle PO SCH ×3 (08:15→18:00)
--- NOTE | 2018-10-02 08:30 | NUR ---
Informed MD López pt agustin catheter has blood, okay to continue eliquis and continue to monitor
[2018-10-02] MEDS: guaiFENesin ER 600mg tablet PO SCH ×2 (10:52→19:23)
[2018-10-02] MEDS: insulin Lispro (HumaLOG) vial - multi-dose SQ SCH ×3 (10:54→19:22)
[2018-10-02] MEDS: epoetin 20,000 units/ml inj SQ SCH (13:51)
[2018-10-02] MEDS: DOBUTamine-DoBUTrex 500mg/D5W 250 ML IV SCH (14:44)
--- NOTE | 2018-10-02 18:14 | NUR ---
Problems reprioritized. Patient report given, questions answered & plan of care reviewed with Alma manjarrez RN, pt greeted at bedside. .
[2018-10-02] MEDS: insulin glargine (Lantus) pen - multi-dose SQ SCH (21:43)
[2018-10-03 02:00] VITALS: BP 96/44
[2018-10-03 05:07] LABS: BASOPHILS % (AUTO) 0.6 % (0-1); EOSINOPHILS # (AUTO) 0.1 X10'3 (0-0.9); EOSINOPHILS % (AUTO) 1.7 % (0-6); HEMATOCRIT 29.2 % (35.0-45.0); LYMPHOCYTES # (AUTO) 0.4 X10'3 (1.1-4.8); LYMPHOCYTES % (AUTO) 7.7 % (21-51); MEAN CORPUSCULAR HEMOGLOBIN 29.3 PG (27.0-31.0); MEAN CORPUSCULAR HGB CONC 30.8 g/dL (33.0-36.5); MEAN CORPUSCULAR VOLUME 95.1 FL (78-98); MEAN PLATELET VOLUME 8.6 FL (7.4-10.4); MONOCYTES # (AUTO) 0.6 X10'3 (0-0.9); MONOCYTES % (AUTO) 9.9 % (2-12); NEUTROPHILS # (AUTO) 4.6 X10'3 (1.8-7.7); NEUTROPHILS % (AUTO) 80.1 % (42-75); PLATELET COUNT 106 X10'3 (140-440); RED BLOOD COUNT 3.07 X10'6 (4.20-5.60); RED CELL DISTRIBUTION WIDTH 27.7 % (11.5-14.5); WHITE BLOOD COUNT 5.7 X10'3 (4.5-11.0)
[2018-10-03 05:34] LABS: ALBUMIN 2.7 G/DL (3.4-5.0); ANION GAP 7 (8-16); BLOOD UREA NITROGEN 116 MG/DL (7-18); BUN/CREATININE RATIO 34.7 (6.6-38.0); CALCIUM 8.6 MG/DL (8.5-10.1); CHLORIDE 104 MMOL/L (99-107); CREATININE 3.34 MG/DL (0.40-0.90); GLUCOSE 168 MG/DL (70-104); SODIUM 137 MMOL/L (135-145); TOTAL CARBON DIOXIDE 26.4 MMOL/L (24-32); eGFR 13 ML/MIN
[2018-10-03 06:59] VITALS: BP 114/43
[2018-10-03] MEDS: allopurinol 100mg tablet PO SCH (08:36)
[2018-10-03] MEDS: guaiFENesin ER 600mg tablet PO SCH ×2 (08:36→19:52)
[2018-10-03] MEDS: ferrous sulfate 325mg tablet PO SCH (08:36)
[2018-10-03] MEDS: docusate sod 100mg capsule PO SCH (08:36)
[2018-10-03] MEDS: apixaban 2.5mg tablet PO SCH ×2 (08:36→19:52)
[2018-10-03] MEDS: levoTHYROXINE 25mcg tablet PO SCH (08:36)
[2018-10-03] MEDS: aspirin 81mg tablet.DR PO SCH (08:36)
[2018-10-03] MEDS: metoprolol tartrate 50mg tablet PO SCH ×3 (08:37→19:52)
[2018-10-03] MEDS: insulin Lispro (HumaLOG) vial - multi-dose SQ SCH ×3 (08:44→19:51)
[2018-10-03] MEDS: lactose-reduced food (Ensure Enlive) - 237ml bottle PO SCH ×3 (08:53→18:33)
[2018-10-03 09:24] LABS: ANISOCYTOSIS 3+; HYPOCHROMASIA 1+; PLATELET ESTIMATE DECREASED; POLYCHROMASIA 1+
[2018-10-03 09:27] LABS: POIKILOCYTOSIS FEW
[2018-10-03 09:29] LABS: BURR CELLS FEW; SCHISTOCYTES FEW
[2018-10-03 11:00] VITALS: BP 100/63
--- NOTE | 2018-10-03 13:36 | NUR ---
PAGER ID: [phone] MESSAGE: [facility]. held metoprolol due to BP 92/36. carmine [phone]
[2018-10-03] MEDS: DOBUTamine-DoBUTrex 500mg/D5W 250 ML IV SCH (13:51)
[2018-10-03 15:00] VITALS: BP 112/47
--- NOTE | 2018-10-03 15:53 | NUR ---
reassessment: Pt PO fluctuating 25-50% avg meals up from 0-25% previous. Per RN documented as refusing ensure but only cause pt is full and is sipping on them between meals instead. Given this PO of ONS and meals decent PO total given age. LBM 10/02. Weakness has improved but given edema and low PO hx pt qualifies for non-severe malnutrition at this time; MD notified. Will continue to monitor. Rec: 1. advance to regular diet per MD approval given low PO hx 2. ensure enlive TIDWM 3. weekly wts Addendum: 10/03/18 at [address] Amended: Links added.
[2018-10-03 18:00] VITALS: BP 125/65
--- NOTE | 2018-10-03 18:18 | NUR ---
Problems reprioritized. Patient report given, questions answered & plan of care reviewed with . Alma whipple pt seen at bedside.
[2018-10-03] MEDS: insulin glargine (Lantus) pen - multi-dose SQ SCH (21:50)
[2018-10-03 22:00] VITALS: BP 90/45
[2018-10-04] VITALS (13 sets, daily range): BP systolic 74–120; BP diastolic 33–73
[2018-10-04 05:26] LABS: BASOPHILS # (AUTO) 0.1 X10'3 (0-0.2); EOSINOPHILS # (AUTO) 0.1 X10'3 (0-0.9); HEMATOCRIT 28.7 % (35.0-45.0); HEMOGLOBIN 8.9 g/dl (12.0-16.0); LYMPHOCYTES # (AUTO) 0.6 X10'3 (1.1-4.8); LYMPHOCYTES % (AUTO) 7.1 % (21-51); MEAN CORPUSCULAR HEMOGLOBIN 29.5 PG (27.0-31.0); MEAN CORPUSCULAR VOLUME 95.1 FL (78-98); MEAN PLATELET VOLUME 8.9 FL (7.4-10.4); MONOCYTES # (AUTO) 0.7 X10'3 (0-0.9); MONOCYTES % (AUTO) 8.7 % (2-12); NEUTROPHILS # (AUTO) 6.4 X10'3 (1.8-7.7); NEUTROPHILS % (AUTO) 82.2 % (42-75); PLATELET COUNT 118 X10'3 (140-440); RED BLOOD COUNT 3.02 X10'6 (4.20-5.60); RED CELL DISTRIBUTION WIDTH 27.5 % (11.5-14.5); WHITE BLOOD COUNT 7.8 X10'3 (4.5-11.0)
--- NOTE | 2018-10-04 06:39 | NUR ---
Patient in room PCU 3027. I have received report from Alma JOYCE and had the opportunity to ask questions and assume patient care. Pt is on Dobutamine gtt at 5 mcg/kg/min, on 2L nasal canula, in no apparent distress, will continue to monitor.
[2018-10-04 07:13] LABS: ALBUMIN 2.9 G/DL (3.4-5.0); ANION GAP 13 (8-16); BLOOD UREA NITROGEN 125 MG/DL (7-18); BUN/CREATININE RATIO 37.3 (6.6-38.0); CALCIUM 8.7 MG/DL (8.5-10.1); CHLORIDE 103 MMOL/L (99-107); CREATININE 3.35 MG/DL (0.40-0.90); GLUCOSE 114 MG/DL (70-104); POTASSIUM 5.3 MMOL/L (3.5-5.1); SODIUM 138 MMOL/L (135-145); TOTAL CARBON DIOXIDE 22.5 MMOL/L (24-32); eGFR 13 ML/MIN
[2018-10-04 07:15] LABS: PLATELET ESTIMATE DECREASED
[2018-10-04 07:16] LABS: ANISOCYTOSIS 3+
[2018-10-04 07:17] LABS: HYPOCHROMASIA 1+
[2018-10-04] MEDS: lactose-reduced food (Ensure Enlive) - 237ml bottle PO SCH ×3 (08:00→18:00)
[2018-10-04] MEDS: allopurinol 100mg tablet PO SCH (09:02)
[2018-10-04] MEDS: metoprolol tartrate 50mg tablet PO SCH ×2 (09:06→13:00)
[2018-10-04] MEDS: apixaban 2.5mg tablet PO SCH ×3 (09:07→19:32)
[2018-10-04] MEDS: ferrous sulfate 325mg tablet PO SCH (09:07)
[2018-10-04] MEDS: docusate sod 100mg capsule PO SCH (09:07)
[2018-10-04] MEDS: levoTHYROXINE 25mcg tablet PO SCH (09:08)
[2018-10-04] MEDS: aspirin 81mg tablet.DR PO SCH (09:08)
[2018-10-04] MEDS: guaiFENesin ER 600mg tablet PO SCH ×2 (09:08→19:34)
[2018-10-04] MEDS: insulin Lispro (HumaLOG) vial - multi-dose SQ SCH ×2 (09:15→13:39)
[2018-10-04] MEDS: DOBUTamine-DoBUTrex 500mg/D5W 250 ML IV SCH (09:36)
[2018-10-04] MEDS ORDERED: normal saline 1000ml 250 ML IV PRN (13:27)
[2018-10-04] MEDS ORDERED: epoetin 20,000 units/ml inj IV ONE (13:30)
[2018-10-04] MEDS ORDERED: heparin 1,000 units/ml 10ml inj HE ONE ×2 (13:35)
--- NOTE | 2018-10-04 18:26 | NUR ---
Problems reprioritized. Patient report given, questions answered & plan of care reviewed with Edith JOYCE.
[2018-10-04] MEDS ORDERED: temazepam 15mg capsule PO PRN (19:35)
[2018-10-04] MEDS: metoprolol tartrate 25mg tablet PO SCH (20:59)
[2018-10-04] MEDS: insulin glargine (Lantus) pen - multi-dose SQ SCH (21:02)
--- NOTE | 2018-10-04 22:05 | NUR ---
Pt started to de-sat to 70's around 2129, attempted to arouse pt, very drowsy (had just received sleeping pill), increased NC to 6L, warmed finger with sat probe, took BP which was also reading low 80's systolic. Switched to simple mask as pt was mouth breathing and sats not raising over 80%, also paged hospitalist. Applied new sat probe to ear, paged respiratory and switched to NRB at 15L, but O2 still not raising above 84%. RT went to get a V60 as she still has active Bipap orders. Steph at bedside, ordered ABG,and 250mL NS bolus. Pending ABG results currently, Bipap at 50%, pt satting ~92%.
[2018-10-04 22:10] LABS: ABG BASE EXCESS -2.3 mmol/L (-2.0-3.0); ABG HCO3 26.2 mmol/L (22.0-26.0); ABG PCO2 (T) 66.4 mmHg (32.0-45.0); ABG PH (T) 7.212 (7.350-7.450); ABG PO2 (T) 61.6 mmHg (83-108); ALLEN'S TEST Positive; FCOHb 0.7 % (0.5-1.5); FMetHb 0.1 % (0.3-1.12); FO2Hb 85.3 % (94-100); MINUTE VOLUME 13 L/min; PATIENT TEMPERATURE 36.7; RESPIRATORY RATE 20 b/min; RESPIRATORY RATE (OBSERVED) 25 b/min; TOTAL HEMOGLOBIN 9.5 G/dl (12.0-16.0)
--- NOTE | 2018-10-04 22:56 | NUR ---
Dr. Choi called to check in on patient, she is currently satting at 100% on Bipap, he reviewed ABG and wanted O2 turned down from 50% to 40% and wants another ABG drawn at midnight. Pt's SBP increased to mid-90's after 250mL bolus, but has now drifted back down to mid-70's. Steph ordered 2nd 250mL bolus, will administer now.
[2018-10-05] VITALS (11 sets, daily range): BP systolic 78–118; BP diastolic 41–67
[2018-10-05 00:10] LABS: ABG BASE EXCESS -3.3 mmol/L (-2.0-3.0); ABG HCO3 24.7 mmol/L (22.0-26.0); ABG OXYGEN SATURATION 98.2 % (95-98); ABG PCO2 (T) 59.7 mmHg (32.0-45.0); ABG PH (T) 7.232 (7.350-7.450); ABG PO2 (T) 128.7 mmHg (83-108); ALLEN'S TEST Positive; FCOHb 0.3 % (0.5-1.5); FMetHb 0.1 % (0.3-1.12); FO2Hb 97.8 % (94-100); MINUTE VOLUME 10 L/min; PATIENT TEMPERATURE 36.7; RESPIRATORY RATE 20 b/min; RESPIRATORY RATE (OBSERVED) 24 b/min; TOTAL HEMOGLOBIN 9.4 G/dl (12.0-16.0)
--- NOTE | 2018-10-05 00:49 | NUR ---
Paged repeat ABG results to Jessicain, slight improvement on Bipap, decreased O2 to 30% now. Lost IV access however, pt extremely hard stick, Dobutamine now on hold until new access is gotten. SBP holding above 90 at this time.
[2018-10-05] MEDS: DOBUTamine-DoBUTrex 500mg/D5W 250 ML IV SCH (05:51)
[2018-10-05 06:29] LABS: EOSINOPHILS # (AUTO) 0.1 X10'3 (0-0.9); HEMOGLOBIN 8.1 g/dl (12.0-16.0); MEAN CORPUSCULAR HGB CONC 31.5 g/dL (33.0-36.5); MEAN PLATELET VOLUME 8.3 FL (7.4-10.4); RED BLOOD COUNT 2.74 X10'6 (4.20-5.60)
[2018-10-05 06:32] LABS: BASOPHILS # (AUTO) 0.1 X10'3 (0-0.2); BASOPHILS % (AUTO) 1.1 % (0-1); EOSINOPHILS % (AUTO) 1.5 % (0-6); HEMATOCRIT 25.6 % (35.0-45.0); LYMPHOCYTES # (AUTO) 0.9 X10'3 (1.1-4.8); LYMPHOCYTES % (AUTO) 16.5 % (21-51); MEAN CORPUSCULAR HEMOGLOBIN 29.4 PG (27.0-31.0); MEAN CORPUSCULAR VOLUME 93.4 FL (78-98); MONOCYTES # (AUTO) 0.5 X10'3 (0-0.9); MONOCYTES % (AUTO) 8.5 % (2-12); NEUTROPHILS % (AUTO) 72.4 % (42-75); PLATELET COUNT 121 X10'3 (140-440); WHITE BLOOD COUNT 5.6 X10'3 (4.5-11.0)
--- NOTE | 2018-10-05 06:33 | NUR ---
Patient in room PCU 3027. I have received report from Edith JOYCE and had the opportunity to ask questions and assume patient care. Pt is on 30% BiPap in no apparent distress, vital signs are within normal limits. Will continue to closely monitor pt.
[2018-10-05 06:58] LABS: ALBUMIN 2.6 G/DL (3.4-5.0); ANION GAP 7 (8-16); BLOOD UREA NITROGEN 137 MG/DL (7-18); BUN/CREATININE RATIO 39.6 (6.6-38.0); CALCIUM 8.6 MG/DL (8.5-10.1); CHLORIDE 104 MMOL/L (99-107); CREATININE 3.46 MG/DL (0.40-0.90); GLUCOSE 92 MG/DL (70-104); POTASSIUM 5.1 MMOL/L (3.5-5.1); SODIUM 138 MMOL/L (135-145); TOTAL CARBON DIOXIDE 26.6 MMOL/L (24-32); eGFR 13 ML/MIN
[2018-10-05] MEDS: guaiFENesin ER 600mg tablet PO SCH ×2 (07:54→20:40)
[2018-10-05] MEDS: aspirin 81mg tablet.DR PO SCH (07:54)
[2018-10-05] MEDS: allopurinol 100mg tablet PO SCH (07:54)
[2018-10-05] MEDS: levoTHYROXINE 25mcg tablet PO SCH (07:54)
[2018-10-05] MEDS: ferrous sulfate 325mg tablet PO SCH (07:54)
[2018-10-05] MEDS: docusate sod 100mg capsule PO SCH (07:54)
[2018-10-05] MEDS ORDERED: epoetin 20,000 units/ml inj IV ONE ×2 (08:00→19:20)
[2018-10-05] MEDS ORDERED: heparin 1,000 units/ml 10ml inj HE ONE ×4 (08:00→19:25)
[2018-10-05] MEDS: metoprolol tartrate 25mg tablet PO SCH ×3 (08:00→21:00)
[2018-10-05] MEDS: lactose-reduced food (Ensure Enlive) - 237ml bottle PO SCH ×3 (08:00→14:15)
[2018-10-05 08:06] LABS: HYPOCHROMASIA 2+
[2018-10-05 08:07] LABS: POLYCHROMASIA 1+; SCHISTOCYTES 1+
[2018-10-05 08:08] LABS: ANISOCYTOSIS 3+
--- NOTE | 2018-10-05 08:12 | NUR ---
PAGER ID: [phone] MESSAGE: [id number] Maylin Serrano Pt's blood pressure is 101/43 (MAP 54), pt denies dizziness/light headedness Thank you, Yamini [phone]
[2018-10-05 08:27] LABS: PLATELET ESTIMATE DECREASED
[2018-10-05] MEDS ORDERED: LIDOcaine 1%/PF 5ML 10 MG/ML VIAL ONE (14:47)
[2018-10-05] MEDS ORDERED: heparin 1,000unit/ml 10ml vial 10 ML ONE (14:47)
[2018-10-05] MEDS ORDERED: fentaNYL/PF 50MCG/1 ML 2ML syringe ONE (15:34)
--- NOTE | 2018-10-05 16:21 | NUR ---
Pt returned from interventional radiology. Vital signs obtain and are within normal limits. Call light given to pt. Temporary dialysis catheter placed by IR, dressing CDI. Dobutamine gtt running at 4.9 mcg/kg/min. Placed pt on back on mobile. Pt in no apparent distress, will continue to monitor.
--- NOTE | 2018-10-05 19:41 | NUR ---
Patient in room PCU 3027. I have received report from Yamini JOYCE and Roverto JOYCE and had the opportunity to ask questions and assume patient care.
[2018-10-05] MEDS: apixaban 2.5mg tablet PO SCH (20:40)
[2018-10-05] MEDS: insulin glargine (Lantus) pen - multi-dose SQ SCH (22:17)
--- NOTE | 2018-10-05 23:30 | NUR ---
Pt spo2 in 70s, pt rr 30s. pt placed back on bipap. will continue to monitor.
[2018-10-06] VITALS (9 sets, daily range): BP systolic 77–112; BP diastolic 38–85
[2018-10-06] MEDS: DOBUTamine-DoBUTrex 500mg/D5W 250 ML IV SCH (01:14)
--- NOTE | 2018-10-06 06:00 | NUR ---
Patient in room PCU 3027. I have received report from MARIA DEL CARMEN Burkett and had the opportunity to ask questions and assume patient care. Patient currently resting in bed, bipap in place at 30% FiO2, no acute distress, no needs at this time.
--- NOTE | 2018-10-06 06:13 | NUR ---
Problems reprioritized. Patient report given, questions answered & plan of care reviewed with Eva JOYCE and Edith JOYCE.
--- NOTE | 2018-10-06 06:47 | NUR ---
Patient in room PCU 2061n. I have received report from Madelaine JOYCE and Cherise RN and had the opportunity to ask questions and assume patient care. Patient is awake in bed, complains of BIPAP making noises, O2 saturation at 100% at this time. Patient denies additional complaints, appears to be in no distress. Patient is sleeping and resting comfortably in bed, appears to be in no distress. Bed is low and locked with call light within reach. Will continue to monitor at this time.
[2018-10-06] MEDS ORDERED: heparin 1,000 units/ml 10ml inj HE ONE ×2 (08:00)
[2018-10-06] MEDS ORDERED: normal saline 1000ml 250 ML IV PRN (08:00)
[2018-10-06] MEDS: lactose-reduced food (Ensure Enlive) - 237ml bottle PO SCH ×3 (08:00→17:44)
[2018-10-06] MEDS ORDERED: epoetin 20,000 units/ml inj IV ONE (08:00)
[2018-10-06] MEDS: allopurinol 100mg tablet PO SCH (08:01)
[2018-10-06] MEDS: levoTHYROXINE 25mcg tablet PO SCH (08:01)
[2018-10-06] MEDS: apixaban 2.5mg tablet PO SCH ×2 (08:01→20:25)
[2018-10-06] MEDS: docusate sod 100mg capsule PO SCH (08:01)
[2018-10-06] MEDS: aspirin 81mg tablet.DR PO SCH (08:01)
[2018-10-06] MEDS: guaiFENesin ER 600mg tablet PO SCH ×2 (08:01→20:25)
[2018-10-06] MEDS: ferrous sulfate 325mg tablet PO SCH (08:01)
[2018-10-06] MEDS: metoprolol tartrate 25mg tablet PO SCH (08:02)
[2018-10-06 08:10] LABS: HBSAG SCREEN Negative (Negative)
[2018-10-06 08:42] LABS: HEMATOCRIT 24.7 % (35.0-45.0); HEMOGLOBIN 7.7 g/dl (12.0-16.0); MEAN CORPUSCULAR HEMOGLOBIN 29.2 PG (27.0-31.0); MEAN CORPUSCULAR HGB CONC 31.1 g/dL (33.0-36.5); MEAN CORPUSCULAR VOLUME 93.8 FL (78-98); MEAN PLATELET VOLUME 8.6 FL (7.4-10.4); PLATELET COUNT 134 X10'3 (140-440); RED BLOOD COUNT 2.63 X10'6 (4.20-5.60); RED CELL DISTRIBUTION WIDTH 28.3 % (11.5-14.5); WHITE BLOOD COUNT 6.1 X10'3 (4.5-11.0)
[2018-10-06] MEDS ORDERED: DOBUTamine-DoBUTrex 500mg/D5W 250 ML IV SCH (09:00)
--- NOTE | 2018-10-06 10:22 | NUR ---
Dobutamine shut off per order from Fanny Galindo. Dobutamine ran at 3mkg/kg/min for one hour per order from Fanny Galindo
--- NOTE | 2018-10-06 10:51 | NUR ---
Patient's HR dropped into the 20's and patient reported feeling nauseous and otherwise "unwell" Right arm was tremoring. Patient reports that the tremors have happened on a few other occasions since she has been here but had never occurred prior to admittance. HR recovered to the 70s without intervention. MD López informed and he evaluated patient, all beta-blockers ordered DC'd. He states he is not concerned about her lower pressures at this time.
--- NOTE | 2018-10-06 11:08 | NUR ---
Physical assessment completed by MARIA DEL CARMEN Velasquez and reviewed by Edith JOYCE. Constructive criticism given as needed.
--- NOTE | 2018-10-06 13:43 | NUR ---
Spoke with KENN Harris who states to continue to monitor patient at this time, after second episode of bradycardia. Patient verbalizes minimal shortness of breath, but denies additional complaints at this time. Hospitalist paged for notification as well. Will continue to monitor.
--- NOTE | 2018-10-06 13:43 | NUR ---
PAGER ID: [phone] MESSAGE: Edith JOYCE Ext [phone] LIBBY Tyler [id number] HR again dropped down into the 20s temporarily. Thank you.
--- NOTE | 2018-10-06 14:09 | NUR ---
reassessment: Pt NPO yesterday s/p temporary dialysis catheter placement -2.5L on HD yesterday per MD note w/ HD again today scheduled. Pt PO 75% avg breakfast this AM per RN w/ 25-50% avg meals prior. Per RN pt requests strawberry ensure enlives now; dietary notified. LBM on colace. Will continue to monitor. Rec: 1. advance to regular diet per MD approval given low PO hx 2. strawberry ensure enlive TIDWM 3. weekly wts Addendum: 10/06/18 at [address] Amended: Links added.
--- NOTE | 2018-10-06 18:13 | NUR ---
Problems reprioritized. Patient report given, questions answered & plan of care reviewed with MARIA DEL CARMEN Burkett. Patient is currently receiving dialysis, vital signs stable at time of report. Patient denies complaints. Bed locked and low, call light in reach, HD nurse at bedside.
[2018-10-06] MEDS: insulin glargine (Lantus) pen - multi-dose SQ SCH (22:08)
[2018-10-07 02:00] VITALS: BP 118/46
[2018-10-07 06:54] VITALS: BP 100/55
--- NOTE | 2018-10-07 07:23 | NUR ---
Patient in room PCU 3027. I have received report from Madelaine JOYCE and had the opportunity to ask questions and assume patient care.
--- NOTE | 2018-10-07 07:44 | NUR ---
Patient in room PCU 3027. I have received report from MARIA DEL CARMEN REED and had the opportunity to ask questions and assume patient care.
[2018-10-07] MEDS: lactose-reduced food (Ensure Enlive) - 237ml bottle PO SCH ×3 (08:00→18:43)
[2018-10-07 09:25] LABS: ALBUMIN 2.6 G/DL (3.4-5.0); ANION GAP 4 (8-16); BLOOD UREA NITROGEN 75 MG/DL (7-18); BUN/CREATININE RATIO 28.8 (6.6-38.0); CALCIUM 8.3 MG/DL (8.5-10.1); CHLORIDE 100 MMOL/L (99-107); GLUCOSE 212 MG/DL (70-104); POTASSIUM 4.6 MMOL/L (3.5-5.1); SODIUM 135 MMOL/L (135-145); TOTAL CARBON DIOXIDE 30.6 MMOL/L (24-32); eGFR 18 ML/MIN
[2018-10-07] MEDS ORDERED: heparin 1,000unit/ml 10ml vial 10 ML IV ONE (09:41)
[2018-10-07] MEDS ORDERED: heparin 1,000 units/ml 10ml inj HE ONE (09:45)
[2018-10-07] MEDS: levoTHYROXINE 25mcg tablet PO SCH (09:57)
[2018-10-07] MEDS: ferrous sulfate 325mg tablet PO SCH (09:57)
[2018-10-07] MEDS: apixaban 2.5mg tablet PO SCH ×2 (09:57→19:13)
[2018-10-07] MEDS: aspirin 81mg tablet.DR PO SCH (09:57)
[2018-10-07] MEDS: docusate sod 100mg capsule PO SCH (09:57)
[2018-10-07] MEDS: allopurinol 100mg tablet PO SCH (09:57)
[2018-10-07] MEDS: guaiFENesin ER 600mg tablet PO SCH ×2 (09:58→19:13)
--- NOTE | 2018-10-07 10:01 | NUR ---
late am esthetician and manager [facility], pt did not want meds earlier.
[2018-10-07] MEDS: insulin Lispro (HumaLOG) vial - multi-dose SQ SCH ×3 (10:10→19:11)
[2018-10-07 11:00] VITALS: BP 119/51
--- NOTE | 2018-10-07 11:11 | NUR ---
PTS URINE IN MARTINEZ CATHETER CONTAINER GRANT AND SEDIMENT. MARTINEZ CARE AND BROOKE CARE DONE. URINE IN MARTINEZ TUBING YELLOW. VIKTORIYA TELLEZ AWARE
[2018-10-07 11:56] LABS: ABG HCO3 27.8 mmol/L (22.0-26.0); ABG OXYGEN SATURATION 92.6 % (95-98); ABG PCO2 (T) 49.9 mmHg (32.0-45.0); ABG PH (T) 7.364 (7.350-7.450); ABG PO2 (T) 67.8 mmHg (83-108); FCOHb 0.7 % (0.5-1.5); FLOW 2 L/min; FMetHb 0.1 % (0.3-1.12); FO2Hb 91.9 % (94-100); TOTAL HEMOGLOBIN 8.8 G/dl (12.0-16.0)
[2018-10-07 15:00] VITALS: BP 130/57
[2018-10-07 18:00] VITALS: BP 118/54
--- NOTE | 2018-10-07 18:32 | NUR ---
Problems reprioritized. Patient report given, questions answered & plan of care reviewed with MARIA DEL CARMEN Marquez.
--- NOTE | 2018-10-07 18:33 | NUR ---
orientee documentation: I have reviewed and agree with all interventions, assessments performed and documented by MARIA DEL CARMEN Chow.
[2018-10-07 22:00] VITALS: BP 121/45
[2018-10-07] MEDS: insulin glargine (Lantus) pen - multi-dose SQ SCH (22:23)
[2018-10-08 02:00] VITALS: BP 113/44
--- NOTE | 2018-10-08 06:20 | NUR ---
Patient in room PCU 3027. I have received report from Alma JOYCE and had the opportunity to ask questions and assume patient care.
[2018-10-08 06:50] VITALS: BP 117/56
[2018-10-08 06:54] LABS: ALBUMIN 2.6 G/DL (3.4-5.0); ANION GAP 8 (8-16); BASOPHILS # (AUTO) 0.1 X10'3 (0-0.2); BASOPHILS % (AUTO) 0.8 % (0-1); BLOOD UREA NITROGEN 91 MG/DL (7-18); CALCIUM 8.8 MG/DL (8.5-10.1); CHLORIDE 101 MMOL/L (99-107); CREATININE 2.68 MG/DL (0.40-0.90); EOSINOPHILS # (AUTO) 0.1 X10'3 (0-0.9); EOSINOPHILS % (AUTO) 1.4 % (0-6); GLUCOSE 88 MG/DL (70-104); HEMATOCRIT 25.3 % (35.0-45.0); HEMOGLOBIN 7.9 g/dl (12.0-16.0); LYMPHOCYTES # (AUTO) 0.6 X10'3 (1.1-4.8); LYMPHOCYTES % (AUTO) 8.9 % (21-51); MEAN CORPUSCULAR HEMOGLOBIN 29.8 PG (27.0-31.0); MEAN CORPUSCULAR HGB CONC 31.3 g/dL (33.0-36.5); MEAN CORPUSCULAR VOLUME 95.4 FL (78-98); MEAN PLATELET VOLUME 8.8 FL (7.4-10.4); MONOCYTES % (AUTO) 14.1 % (2-12); NEUTROPHILS # (AUTO) 5.3 X10'3 (1.8-7.7); NEUTROPHILS % (AUTO) 74.8 % (42-75); PLATELET COUNT 141 X10'3 (140-440); RED BLOOD COUNT 2.65 X10'6 (4.20-5.60); RED CELL DISTRIBUTION WIDTH 28.1 % (11.5-14.5); SODIUM 136 MMOL/L (135-145); TOTAL CARBON DIOXIDE 26.7 MMOL/L (24-32); WHITE BLOOD COUNT 7.1 X10'3 (4.5-11.0); eGFR 17 ML/MIN
[2018-10-08] MEDS ORDERED: metoprolol tartrate 25mg tablet PO SCH (08:00)
[2018-10-08] MEDS: guaiFENesin ER 600mg tablet PO SCH ×2 (08:24→19:52)
[2018-10-08] MEDS: docusate sod 100mg capsule PO SCH (08:24)
[2018-10-08] MEDS: aspirin 81mg tablet.DR PO SCH (08:25)
[2018-10-08] MEDS: allopurinol 100mg tablet PO SCH (08:25)
[2018-10-08] MEDS: levoTHYROXINE 25mcg tablet PO SCH (08:25)
[2018-10-08] MEDS: apixaban 2.5mg tablet PO SCH ×2 (08:25→19:53)
[2018-10-08] MEDS: ferrous sulfate 325mg tablet PO SCH (08:26)
[2018-10-08] MEDS: lactose-reduced food (Ensure Enlive) - 237ml bottle PO SCH ×3 (08:29→18:00)
[2018-10-08] MEDS: insulin Lispro (HumaLOG) vial - multi-dose SQ SCH ×2 (09:03→19:50)
[2018-10-08 09:14] LABS: PLATELET ESTIMATE NORMAL
[2018-10-08 09:15] LABS: ANISOCYTOSIS 3+; POLYCHROMASIA 1+
[2018-10-08 09:16] LABS: HYPOCHROMASIA 2+; SCHISTOCYTES 1+
[2018-10-08 11:00] VITALS: BP 97/48
[2018-10-08 15:00] VITALS: BP 105/40
[2018-10-08 18:00] VITALS: BP 105/53
--- NOTE | 2018-10-08 18:10 | NUR ---
Problems reprioritized. Patient report given, questions answered & plan of care reviewed with Alma JOYCE.
[2018-10-08] MEDS: metoprolol tartrate 12.5mg (1/2 tablet) PO SCH (19:52)
[2018-10-08] MEDS: insulin glargine (Lantus) pen - multi-dose SQ SCH (20:54)
[2018-10-08 22:00] VITALS: BP 90/43
[2018-10-09 02:00] VITALS: BP 93/43
[2018-10-09 06:00] VITALS: BP 98/42
--- NOTE | 2018-10-09 06:30 | NUR ---
Patient in room PCU 3027. I have received report from Alma JOYCE and had the opportunity to ask questions and assume patient care. Patient asleep in bed. Resting comfortably. In no acute distress. Will continue to monitor.
[2018-10-09 06:34] LABS: BASOPHILS # (AUTO) 0.1 X10'3 (0-0.2); EOSINOPHILS # (AUTO) 0.1 X10'3 (0-0.9); HEMATOCRIT 24.6 % (35.0-45.0); HEMOGLOBIN 7.7 g/dl (12.0-16.0); LYMPHOCYTES # (AUTO) 0.6 X10'3 (1.1-4.8); LYMPHOCYTES % (AUTO) 8.9 % (21-51); MEAN CORPUSCULAR HEMOGLOBIN 29.5 PG (27.0-31.0); MEAN CORPUSCULAR HGB CONC 31.3 g/dL (33.0-36.5); MEAN CORPUSCULAR VOLUME 94.2 FL (78-98); MEAN PLATELET VOLUME 8.5 FL (7.4-10.4); MONOCYTES # (AUTO) 0.8 X10'3 (0-0.9); MONOCYTES % (AUTO) 12.9 % (2-12); NEUTROPHILS # (AUTO) 4.9 X10'3 (1.8-7.7); NEUTROPHILS % (AUTO) 75.2 % (42-75); PLATELET COUNT 150 X10'3 (140-440); RED BLOOD COUNT 2.62 X10'6 (4.20-5.60); RED CELL DISTRIBUTION WIDTH 27.8 % (11.5-14.5); WHITE BLOOD COUNT 6.6 X10'3 (4.5-11.0)
[2018-10-09 06:39] LABS: ALBUMIN 2.5 G/DL (3.4-5.0); ANION GAP 6 (8-16); BLOOD UREA NITROGEN 57 MG/DL (7-18); BUN/CREATININE RATIO 25.6 (6.6-38.0); CALCIUM 8.4 MG/DL (8.5-10.1); CHLORIDE 103 MMOL/L (99-107); CREATININE 2.23 MG/DL (0.40-0.90); GLUCOSE 77 MG/DL (70-104); POTASSIUM 4.2 MMOL/L (3.5-5.1); SODIUM 138 MMOL/L (135-145); TOTAL CARBON DIOXIDE 28.8 MMOL/L (24-32); eGFR 21 ML/MIN
[2018-10-09] MEDS: lactose-reduced food (Ensure Enlive) - 237ml bottle PO SCH ×3 (08:00→18:00)
[2018-10-09] MEDS: metoprolol tartrate 12.5mg (1/2 tablet) PO SCH ×2 (08:00→19:37)
[2018-10-09] MEDS: docusate sod 100mg capsule PO SCH (08:39)
[2018-10-09] MEDS: ferrous sulfate 325mg tablet PO SCH (08:39)
[2018-10-09] MEDS: allopurinol 100mg tablet PO SCH (08:40)
[2018-10-09] MEDS: aspirin 81mg tablet.DR PO SCH (08:40)
[2018-10-09] MEDS: apixaban 2.5mg tablet PO SCH ×2 (08:40→19:37)
[2018-10-09] MEDS: guaiFENesin ER 600mg tablet PO SCH ×2 (08:42→19:37)
[2018-10-09] MEDS: levoTHYROXINE 25mcg tablet PO SCH (08:42)
[2018-10-09] MEDS: insulin Lispro (HumaLOG) vial - multi-dose SQ SCH ×2 (08:47→12:56)
[2018-10-09 11:00] VITALS: BP 81/40
[2018-10-09 12:23] LABS: ANISOCYTOSIS 3+; HYPOCHROMASIA 2+; PLATELET ESTIMATE NORMAL
[2018-10-09 12:24] LABS: SCHISTOCYTES FEW
[2018-10-09 15:00] VITALS: BP 99/42
[2018-10-09] MEDS: epoetin 20,000 units/ml inj SQ SCH (15:41)
[2018-10-09 18:00] VITALS: BP 96/63
--- NOTE | 2018-10-09 18:46 | NUR ---
[place] documentation: I have reviewed and agree with all interventions, assessments performed and documented by Erika JOYCE. [place] Medication Administration: For this medication-pass time frame, all medication were reviewed, dispensed, administered and documented per hospital policy by Erika JOYCE.
--- NOTE | 2018-10-09 18:48 | NUR ---
Problems reprioritized. Patient report given, questions answered & plan of care reviewed with Alma JOYCE. Patient stable at time of transfer of care.
[2018-10-09] MEDS: insulin glargine (Lantus) pen - multi-dose SQ SCH (21:10)
[2018-10-09 22:00] VITALS: BP 94/46
[2018-10-10 02:00] VITALS: BP 101/44
[2018-10-10 05:48] LABS: BASOPHILS # (AUTO) 0.1 X10'3 (0-0.2); BASOPHILS % (AUTO) 0.6 % (0-1); EOSINOPHILS # (AUTO) 0.1 X10'3 (0-0.9); EOSINOPHILS % (AUTO) 1.6 % (0-6); HEMATOCRIT 24.5 % (35.0-45.0); HEMOGLOBIN 7.7 g/dl (12.0-16.0); LYMPHOCYTES # (AUTO) 0.8 X10'3 (1.1-4.8); LYMPHOCYTES % (AUTO) 8.7 % (21-51); MEAN CORPUSCULAR HEMOGLOBIN 29.6 PG (27.0-31.0); MEAN CORPUSCULAR HGB CONC 31.5 g/dL (33.0-36.5); MEAN CORPUSCULAR VOLUME 93.9 FL (78-98); MEAN PLATELET VOLUME 8.5 FL (7.4-10.4); MONOCYTES % (AUTO) 11.9 % (2-12); NEUTROPHILS # (AUTO) 6.6 X10'3 (1.8-7.7); NEUTROPHILS % (AUTO) 77.2 % (42-75); PLATELET COUNT 183 X10'3 (140-440); RED CELL DISTRIBUTION WIDTH 27.4 % (11.5-14.5); WHITE BLOOD COUNT 8.6 X10'3 (4.5-11.0)
[2018-10-10 06:00] VITALS: BP 106/52
[2018-10-10 06:03] LABS: ALBUMIN 2.6 G/DL (3.4-5.0); ANION GAP 8 (8-16); BLOOD UREA NITROGEN 69 MG/DL (7-18); BUN/CREATININE RATIO 26.4 (6.6-38.0); CALCIUM 8.4 MG/DL (8.5-10.1); CHLORIDE 100 MMOL/L (99-107); CREATININE 2.61 MG/DL (0.40-0.90); GLUCOSE 111 MG/DL (70-104); POTASSIUM 4.7 MMOL/L (3.5-5.1); SODIUM 136 MMOL/L (135-145); TOTAL CARBON DIOXIDE 28.4 MMOL/L (24-32); eGFR 17 ML/MIN
--- NOTE | 2018-10-10 06:30 | NUR ---
Patient in room PCU 3027. I have received report from Alma JOYCE and had the opportunity to ask questions and assume patient care. Patient asleep in bed. In no acute distress. Will continue to monitor.
[2018-10-10 07:23] VITALS: BP 106/52
[2018-10-10] MEDS: lactose-reduced food (Ensure Enlive) - 237ml bottle PO SCH ×2 (08:00→14:00)
[2018-10-10] MEDS ORDERED: heparin 1,000 units/ml 10ml inj HE ONE ×2 (08:00→08:25)
[2018-10-10] MEDS ORDERED: normal saline 1000ml 250 ML IV PRN (08:00)
[2018-10-10] MEDS ORDERED: epoetin 20,000 units/ml inj IV ONE (08:00)
[2018-10-10] MEDS: metoprolol tartrate 12.5mg (1/2 tablet) PO SCH (08:00)
[2018-10-10] MEDS: guaiFENesin ER 600mg tablet PO SCH (08:21)
[2018-10-10] MEDS: docusate sod 100mg capsule PO SCH (08:21)
[2018-10-10] MEDS: apixaban 2.5mg tablet PO SCH (08:21)
[2018-10-10] MEDS: allopurinol 100mg tablet PO SCH (08:21)
[2018-10-10] MEDS: ferrous sulfate 325mg tablet PO SCH (08:21)
[2018-10-10] MEDS: levoTHYROXINE 25mcg tablet PO SCH (08:21)
[2018-10-10] MEDS: aspirin 81mg tablet.DR PO SCH (08:21)
[2018-10-10] MEDS: insulin Lispro (HumaLOG) vial - multi-dose SQ SCH (08:36)
[2018-10-10 09:33] LABS: ANISOCYTOSIS 3+; PLATELET ESTIMATE NORMAL
[2018-10-10 09:34] LABS: ELLIPTOCYTES FEW; HYPOCHROMASIA 2+; POIKILOCYTOSIS 1+; POLYCHROMASIA FEW; SCHISTOCYTES FEW
[2018-10-10 10:40] LABS: FERRITIN 46 NG/ML (8-252)
[2018-10-10 10:46] LABS: % IRON SATURATION 31 % (11-46); IRON 107 UG/DL (49-151); TOTAL IRON BINDING CAPACITY 350 UG/DL (259-388)
[2018-10-10 11:00] VITALS: BP 99/47
--- NOTE | 2018-10-10 11:08 | NUR ---
Nutrition supplement not on breakfast tray. Dietary notified.
--- NOTE | 2018-10-10 12:43 | NUR ---
reassessment: Pt PO 25-50% meals and drinking ensures between meals per RN. LBM 10/05 receiving daily colace but also taking iron. CEDRICK d/w RN for additional bowel care per MD approval. Will continue to monitor. Rec: 1. advance to regular diet per MD approval given low PO hx 2. strawberry ensure enlive TIDWM 3. weekly wts Addendum: 10/10/18 at [address] Amended: Links added.
--- NOTE | 2018-10-10 13:57 | NUR ---
patient recieiving hemodalysis. and lunch meal is postponed. her BG is 100, will hold coverage until dinner meal. Addendum: 10/10/18 at 1445 by Radha Wells RN Humalog coverage not given per no meal
[2018-10-10 15:00] VITALS: BP 83/47
--- NOTE | 2018-10-10 16:55 | NUR ---
Report called to MARIA DEL CARMEN Kinsey at [facility] for patient transfer.
--- NOTE | 2018-10-10 17:45 | NUR ---
Patient stable for transfer to [facility]. Report called to Tio. Patient transported via ambulance service. Winter catheter in place at time of transfer. Patient has TDC for dialysis that is in place and asymptomatic. PIV discontinued with intact cannula. All patient belongings and transfer packet sent with patient in ambulance to [facility].
== END 2018-10-10 17:45 | DRG 291 ==
LOC: ER 18:03 → UNDOADMIN 23:54 → ED HOLD 23:54 → PCU 3S 23:54 → CMPBEDREQ 09-26 00:05 → ED HOLD 09-26 00:41 → PCU 3S 09-26 00:41
PROVIDERS: ADMIT Internal Medicine; ATTEND Family Medicine
PROC: 5A09357 Assistance with Respiratory Ventilation, Less than 24 Consecutive Hours, Continuous Positive Airway Pressure (ICD-10-PCS; principal; 2018-09-28)
PROC: 5A09357 Assistance with Respiratory Ventilation, Less than 24 Consecutive Hours, Continuous Positive Airway Pressure (ICD-10-PCS; 2018-09-29)
PROC: 5A09357 Assistance with Respiratory Ventilation, Less than 24 Consecutive Hours, Continuous Positive Airway Pressure (ICD-10-PCS; 2018-09-30)
PROC: CT131ZZ Planar Nuclear Medicine Imaging of Kidneys, Ureters and Bladder using Technetium 99m (Tc-99m) (ICD-10-PCS; 2018-09-30)
PROC: 5A09357 Assistance with Respiratory Ventilation, Less than 24 Consecutive Hours, Continuous Positive Airway Pressure (ICD-10-PCS; 2018-10-01)
PROC: 5A1D70Z Performance of Urinary Filtration, Intermittent, Less than 6 Hours Per Day (ICD-10-PCS; 2018-10-03)
PROC: 5A09357 Assistance with Respiratory Ventilation, Less than 24 Consecutive Hours, Continuous Positive Airway Pressure (ICD-10-PCS; 2018-10-04)
PROC: 5A09357 Assistance with Respiratory Ventilation, Less than 24 Consecutive Hours, Continuous Positive Airway Pressure (ICD-10-PCS; 2018-10-05)
PROC: 02HV33Z Insertion of Infusion Device into Superior Vena Cava, Percutaneous Approach (ICD-10-PCS; 2018-10-05)
PROC: B548ZZA Ultrasonography of Superior Vena Cava, Guidance (ICD-10-PCS; 2018-10-05)
PROC: 5A1D70Z Performance of Urinary Filtration, Intermittent, Less than 6 Hours Per Day (ICD-10-PCS; 2018-10-05)
PROC: 5A09357 Assistance with Respiratory Ventilation, Less than 24 Consecutive Hours, Continuous Positive Airway Pressure (ICD-10-PCS; 2018-10-06)
PROC: 5A1D70Z Performance of Urinary Filtration, Intermittent, Less than 6 Hours Per Day (ICD-10-PCS; 2018-10-06)
PROC: 5A09357 Assistance with Respiratory Ventilation, Less than 24 Consecutive Hours, Continuous Positive Airway Pressure (ICD-10-PCS; 2018-10-07)
PROC: 5A09357 Assistance with Respiratory Ventilation, Less than 24 Consecutive Hours, Continuous Positive Airway Pressure (ICD-10-PCS; 2018-10-08)
PROC: 5A1D70Z Performance of Urinary Filtration, Intermittent, Less than 6 Hours Per Day (ICD-10-PCS; 2018-10-08)
PROC: 5A09357 Assistance with Respiratory Ventilation, Less than 24 Consecutive Hours, Continuous Positive Airway Pressure (ICD-10-PCS; 2018-10-09)
PROC: 5A1D70Z Performance of Urinary Filtration, Intermittent, Less than 6 Hours Per Day (ICD-10-PCS; 2018-10-10)
DX: I13.0 Hypertensive heart and chronic kidney disease with heart failure and stage 1 through stage 4 chronic kidney disease, or unspecified chronic kidney disease (principal); J96.21 Acute and chronic respiratory failure with hypoxia; I50.33 Acute on chronic diastolic (congestive) heart failure; J96.22 Acute and chronic respiratory failure with hypercapnia; N18.4 Chronic kidney disease, stage 4 (severe); J44.1 Chronic obstructive pulmonary disease with (acute) exacerbation; N17.9 Acute kidney failure, unspecified; E87.2 Acidosis; I27.20 Pulmonary hypertension, unspecified; I05.0 Rheumatic mitral stenosis; E11.22 Type 2 diabetes mellitus with diabetic chronic kidney disease; E03.9 Hypothyroidism, unspecified; E11.65 Type 2 diabetes mellitus with hyperglycemia; I48.0 Paroxysmal atrial fibrillation; E78.5 Hyperlipidemia, unspecified; D63.8 Anemia in other chronic diseases classified elsewhere; E87.5 Hyperkalemia; I25.10 Atherosclerotic heart disease of native coronary artery without angina pectoris; Z60.2 Problems related to living alone; I48.2 Chronic atrial fibrillation; T46.0X5A Adverse effect of cardiac-stimulant glycosides and drugs of similar action, initial encounter; Z66 Do not resuscitate; Z79.4 Long term (current) use of insulin; Z79.899 Other long term (current) drug therapy; Z83.3 Family history of diabetes mellitus; Z86.73 Personal history of transient ischemic attack (TIA), and cerebral infarction without residual deficits; Z95.3 Presence of xenogenic heart valve; Z95.5 Presence of coronary angioplasty implant and graft; Z88.0 Allergy status to penicillin; Z88.8 Allergy status to other drugs, medicaments and biological substances; Z79.82 Long term (current) use of aspirin; Y92.89 Other specified places as the place of occurrence of the external cause; Z68.34 Body mass index [BMI] 34.0-34.9, adult
CPT/HCPCS: 36415; 36556; 36600; 71045; 76775; 76937; 78707; 80048; 80053; 80162; 81001; 82570; 82728; 82803; 82948; 83036; 83540; 83550; 83735; 83880; 83935; 84156; 84300; 84484; 85018; 85025; 85027; 85610; 87070; 87340; 90935; 93005; 93975; 94660; 94667; 94668; 94760; 97110; 97116; 97163; 97530; 99285; A9270; A9562; C1751; C1894; G0257; G0378; J0885; J1250; J1644; J1815; J1940; J2001; J2150; J3010; J7030